=== PATIENT | male | born 1955 | race Caucasian/White ===

== ENCOUNTER 2024-12-12 09:52 | Inpatient (IN) | payer OTHER ==
[~2024-12-12] VITALS: Ht 188 cm; Wt 99.3 kg
--- NOTE | 2024-12-12 10:15 | ED.PDOC ---
SOB-HPI HPI Comments 69 year old male presents to the ED with chief complaint of SOB. Patient reports that he has been experiencing SOB with associated generalized weakness for the past few days. Patient relays that he is currently on Eliquis and chemotherapy with his last session being on Wednesday. Patient noted to have a BP of 73/54 in triage. Patient denies any N/V/D, chest pain, dizziness, headache, fever, or chills. Time Seen by MD: 10:09 Reviewed notes: Nurses Notes, Medications, Allergies Information Source: Patient Mode of Arrival: Wheelchair Severity: Moderate Timing: Days Duration: Since onset Context: At Rest PE Risk Factors: None History of: None Prehospital treatment: None Modifying Factors: Nothing Associated Signs and Symptoms: Other (Weakness) Past Medical History PAST MEDICAL HISTORY: AFIB, Cancer Surgical History (Other): Colostomy Family History Family History: Reviewed,noncontributory to illness Social History Smoker: Non-Smoker Alcohol: Denies ETOH Use Drugs: Denies Drug Use Lives In: Home Constitutional: reports: weakness; denies: chills, diaphoresis, fatigue, fever, malaise, sweats, others EENTM: denies: blurred vision, double vision, ear bleeding, ear discharge, ear drainage, ear pain, ear ringing, eye pain, eye redness, hearing loss, mouth pain, mouth swelling, nasal discharge, nose bleeding, nose congestion, nose pain , photophobia, tearing, throat pain, throat swelling, voice changes, others Respiratory: reports: shortness of breath; denies: cough, hemoptysis, orthopnea, SOB at rest, SOB with excertion, stridor, wheezing, others Cardiovascular: denies: chest pain, dizzy spells, diaphoresis, Dyspnea on exertion, edema, irregular heart beat, left arm pain, lightheadedness, palpitations, PND, syncope, others Gastrointestinal: denies: abdomen distended, abdominal pain, blood streaked bowels, constipated, diarrhea, dysphagia, difficulty swallowing, hematemesis, melena, nausea, poor appetite, poor fluid intake, rectal bleeding, rectal pain, vomiting, others Genitourinary: denies: burning, dysuria, flank pain, frequency, hematuria, incontinence, penile discharge, penile sore, pain, testicle pain, testicle swelling, urgency, others Neurological: denies: dizziness, fainting, headache, left sided numbness, left sided weakness, numbness, paresthesia, pre-existing deficit, right sided numbness, right sided weakness, seizure, speech problems, tingling, tremors, weakness, others Musculoskeletal: denies: back pain, gout, joint pain, joint swelling, muscle pain, muscle stiffness, neck pain, others Integumetry: denies: bruises, change in color, change in hair/nails, dryness, laceration, lesions, lumps, rash, wounds, others Allergic/Immunocompromised: denies: Difficulty Healing, Frequent Infections, Hives, Itching, others Hematologic/Lymphatic: denies: anemia, blood clots, easy bleeding, easy bruising, swollen glands, others Endocrine: denies: excessive hunger, excessive sweating, excessive thirst, excessive urination, flushing, intolerance to cold, intolerance to heat, unexplained weight gain, unexplained weight loss, others Psychiatric: denies: anxiety, bipolar disorder, depression, hopeless, panic disorder, schizophrenia, sleepless, suicidal, others All Other Systems: Reviewed and Negative Physical Exam General Appearance: No Apparent Distress, Normal HEENT: Normal ENT Inspection, PERRL/EOMI Neck: Full Range of Motion, Non-Tender, Normal, Normal Inspection Respiratory: Chest Non-Tender, Lungs Clear, No Accessory Muscle Use, No Respiratory Distress, Other (Coarse breath sounds bilaterally) Cardiovascular: No Edema, No JVD, No Murmur, No Gallop, Normal Peripheral Pulses, Tachycardia Breast Exam: Other (Left sided chest wall port) Gastrointestinal: No Organomegaly, Non Tender, No Pulsatile Mass, Normal Bowel Sounds, Soft Genitalia: Deferred Pelvic: Deferred Rectal: Deferred Extremities: No calf tenderness, Normal capillary refill, Normal inspection, Normal range of motion, Non-tender, No pedal edema Musculoskeletal : Apperance: Normal Neurologic: Alert, redye hand II-XII nml as Tested, No Motor Deficits, Normal Affect, Normal Mood, No Sensory Deficits Cerebellar Function: Normal Reflexes: Normal Skin: Dry, Normal Color, Warm Lymphatic: No Adenopathy Was a procedure done? Was a procedure done?: No Differential Dx Differential Diagnosis: Asthma, Cardiogenic Shock, CHF, COPD, Pneumonia, Respiratory Distress X-Ray, Labs, Meds, VS Vital Signs Date Time Temp Pulse Resp B/P (MAP) Pulse Ox O2 Delivery O2 Flow Rate FiO2 12/12/24 12:33 72 14 151/96 (114) 98 12/12/24 12:32 75 18 98 Room Air* 0 21 12/12/24 12:00 81 12/12/24 11:20 86 12 123/73 (90) 99 12/12/24 11:20 12 99 Room Air* 0 21 12/12/24 10:25 98.7 80 18 73/54 (60) 100 12/12/24 10:06 87 12/12/24 10:00 18 100 Room Air* 0 21 Lab Test 12/12/24 13:22 12/12/24 10:50 12/12/24 10:16 Range/Units Lactic Acid Level 1.3 2.4 *H 0.4-2.0 mmol/L Troponin I High Sensitivity 17 18 18 </=54 ng/L White Blood Count 11.0 H 4.4-10.8 10^3/uL Red Blood Count 5.34 4.5-5.90 10^6/uL Hemoglobin 11.7 L 13.5-17.5 g/dL Hematocrit 40.7 L 41.0-53.0 % Mean Corpuscular Volume 76.2 L 80.0-100.0 fL Mean Corpuscular Hemoglobin 21.8 L 28.0-32.0 pg Mean Corpuscular Hemoglobin Concent 28.6 L 32.0-36.0 g/dL Red Cell Distribution Width 24.8 H 11.8-14.3 % Platelet Count 386 140-450 10^3/uL Mean Platelet Volume 8.2 6.9-10.8 fL Neutrophils (%) (Auto) 72.6 37.0-80.0 % Lymphocytes (%) (Auto) 17.2 10.0-50.0 % Monocytes (%) (Auto) 9.2 0.0-12.0 % Eosinophils (%) (Auto) 0.7 0.0-7.0 % Basophils (%) (Auto) 0.3 0.0-2.0 % Neutrophils # (Auto) 8.0 1.6-8.6 10 ^3/uL Lymphocytes # (Auto) 1.9 0.4-5.4 10 ^3/uL Monocytes # (Auto) 1.0 0-1.3 10 ^3/uL Eosinophils # (Auto) 0.1 0-0.8 10 ^3/uL Basophils # (Auto) 0 0-0.2 10 ^3/uL Nucleated Red Blood Cells 0.3 % Sodium Level 135 L 136-145 mmol/L Potassium Level 3.0 L 3.5-5.1 mmol/L Chloride Level 105 98-107 mmol/L Carbon Dioxide Level 15 L 20-31 mmol/L Anion Gap 15 5-15 Blood Urea Nitrogen 37 H 9-23 mg/dL Creatinine 1.94 H 0.700-1.30 mg/dL Glomerular Filtration Rate Calc 36 >90 mL/min BUN/Creatinine Ratio 19.1 10.0-20.0 Serum Glucose 137 H 74-106 mg/dL Calcium Level 9.5 8.7-10.4 mg/dL Total Bilirubin 0.6 0.2-1.0 mg/dL Aspartate Amino Transferase (AST) 50 H 13-40 U/L Alanine Aminotransferase (ALT) 34 7-40 U/L Alkaline Phosphatase 176 H 46-116 U/L B-Type Natriuretic Peptide 31.85 0-100 pg/mL Total Protein 6.7 5.7-8.2 g/dL Albumin 4.8 3.2-4.8 g/dL Current Medications Medications (Trade) Dose Ordered Sig/Vidhya Route Start Time Stop Time Status Last Admin Sodium Chloride 1,000 ml @ 1,000 mls/hr Q1H ONCE IV 12/12/24 10:15 12/12/24 12:29 DC 12/12/24 10:30 Ondansetron HCl (Zofran) 4 mg ONCE ONCE IV 12/12/24 10:15 12/12/24 12:28 DC 12/12/24 10:30 Time of 1ST Reevaluation: 11:09 Reevaluation 1ST: Unchanged Patient Education/Counseling: Diagnosis, Treatment Family Education/Counseling: No Family Present Additional Information I reviewed the following notes from patient's past medical encounters: None The following tests were ordered, and results were reviewed by me: Chest XR, EKG, CBC, CMP, UA, BNP, Lactic Acid, Troponin I reviewed and agreed with the following test results read by other providers: Chest XR Additional Information was gathered from interviewing the following independent historians: None I discussed treatment and results with medical personnel. Departure 1 Departure Time of Disposition: 14:28 (Patient with worsening respiratory distress likely secondary to malignancy. We will admit patient to the hospital for further workup.) Impression: Primary Impression: Acute respiratory distress Additional Impressions: Shortness of breath Malignancy Disposition: ADMITTED INPATIENT Admit to: Med Surg Condition: Serious Critical Care Note Critical Care Time?: Yes Critical care comment: Acute respiratory distress Authorized and Performed by: Sawyer Gomez MD Total critical care time: Approximately 38 minutes Due to a high probability of clinically significant, life threatening deterioration, the patient required my highest level of preparedness to intervene emergently and I personally spent this critical care time directly and personally managing the patient. This critical care time included obtaining a history; examining the patient; pulse oximetry; ordering and review of studies; arranging urgent treatment with development of a management plan; evaluation of patient's response to treatment; frequent reassessment; and, discussions with other providers. This critical care time was performed to assess and manage the high probability of imminent, life-threatening deterioration that could result in multi-organ failure. It was exclusive of separately billable procedures and treating other patients and teaching time. Please see my other sections and the rest of the note for further information on patient assessment and treatment. Stability Stability form required: No Heart Score Heart Score: Heart Score Response (Comments) Value History N/A 0 EKG N/A 0 Age N/A 0 Risk Factors N/A 0 Troponin N/A 0 Total 0 I personally scribed for SAWYER GOMEZ MD ([email or web address]) on 12/12/24 at 10:15. Electronically submitted by Gabriel Ocasio ([email or web address]). I personally scribed for SAWYER GOMEZ MD ([email or web address]) on 12/12/24 at 10:20. Electronically submitted by Gabriel Ocasio ([email or web address]). SAWYER GOMEZ MD Dec 12, 2024 10:15
[2024-12-12] MEDS: ONDANSETRON HCL 4 MG/2 ML VIAL IV ONE (10:30)
[2024-12-12] MEDS: SODIUM CHLORIDE 0.9% 1,000 ML IV ONE (10:30)
[2024-12-12 10:44] LABS: Hemoglobin 11.7 g/dL (13.5-17.5); Mean Corpuscular Hgb Conc. 28.6 g/dL (32.0-36.0); Nucleated Red Blood Cells % 0.3 %
[2024-12-12 10:46] LABS: Basophils # (auto) 0 10 ^3/uL (0-0.2); Basophils % (auto) 0.3 % (0.0-2.0); Eosinophils # (auto) 0.1 10 ^3/uL (0-0.8); Eosinophils % (auto) 0.7 % (0.0-7.0); Hematocrit 40.7 % (41.0-53.0); Lymphocytes # (auto) 1.9 10 ^3/uL (0.4-5.4); Lymphocytes % (auto) 17.2 % (10.0-50.0); Mean Corpuscular Hemoglobin 21.8 pg (28.0-32.0); Mean Corpuscular Volume 76.2 fL (80.0-100.0); Monocytes % (auto) 9.2 % (0.0-12.0); Neutrophils % (auto) 72.6 % (37.0-80.0); Platelet Count (auto) 386 10^3/uL (140-450); Red Blood Cells 5.34 10^6/uL (4.5-5.90); Red Cell Distribution Width 24.8 % (11.8-14.3)
--- NOTE | 2024-12-12 10:59 | DVH ---
EXAM: XY CHEST PORTABLE Indication: weakness Technique: Single frontal view of the chest was obtained Comparison: None FINDINGS: Lines and Tubes: None Lungs: No focal consolidation. Prominence of the right hilar region. Pleura: No effusion. No pneumothorax. Cardiomediastinal contours: Unremarkable Bones: No acute osseous abnormality. IMPRESSION: Prominence of the right hilar region which may represent a enlarged lymph node or pulmonary vascular congestion.
[2024-12-12 11:20] VITALS: RESP 12; O2SAT 99
[2024-12-12 11:45] LABS: Alanine Aminotransferase 34 U/L (7-40); Calcium 9.5 mg/dL (8.7-10.4); Chloride 105 mmol/L (98-107)
[2024-12-12 11:46] LABS: Albumin 4.8 g/dL (3.2-4.8); Anion Gap 15 (5-15); BUN/Creatinine Ratio 19.1 (10.0-20.0); Bilirubin, Total 0.6 mg/dL (0.2-1.0); Total Protein 6.7 g/dL (5.7-8.2)
[2024-12-12 11:48] LABS: Aspartate Aminotransferase 50 U/L (13-40); Blood Urea Nitrogen 37 mg/dL (9-23); Carbon Dioxide 15 mmol/L (20-31); Glucose 137 mg/dL (74-106); Sodium 135 mmol/L (136-145)
[2024-12-12 12:00] LABS: Lactic Acid w/Reflex 2.4 mmol/L (0.4-2.0)
[2024-12-12 12:32] VITALS: PULSE 75; RESP 18; O2SAT 98
[2024-12-12 12:37] LABS: Alkaline Phosphatase 176 U/L (46-116)
--- NOTE | 2024-12-12 15:21 | ECG ---
[facility] Test Date: 2024-12-12 Test Time: 10:06:10 Pat Name: CHARLES DUMONT Department: ER Room: 0289T Gender: M Cabin Supervisor: GP : [id number] Requested By: SAWYER CAMILO Order Number: [id number] Reading MD: Otis Kinney Measurements Intervals [place] Rate: 87 P: 0 UT: 0 QRS: 62 QRSD: 100 T: 23 QT: 431 QTc: 519 Interpretive Statements Atrial fibrillation Inferior infarct, old Prolonged QT interval Baseline wander in lead(s) I,II,aVR,aVL,aVF,V2,V3,V4,V5,V6 Electronically Signed On 12-14-2024 11:53:58 PST by Otsi Kinney Please click the below link to view image of tracing.
[2024-12-12] MEDS ORDERED: CELE1CAP29 PO (15:52)
[2024-12-12] MEDS ORDERED: FERR325T20 PO (15:52)
[2024-12-12] MEDS ORDERED: TAMS0.4C39 (15:52)
[2024-12-12] MEDS ORDERED: OXY5T (15:52)
[2024-12-12] MEDS ORDERED: APIX5TAB (15:52)
[2024-12-12] MEDS ORDERED: MORPHINE SULFATE INJ 2 MG/ml SYRG IV PRN (16:00)
[2024-12-12] MEDS ORDERED: CHOLESTYRAMINE 4 GM POWDER PO ONE (16:00)
[2024-12-12] MEDS ORDERED: NITROGLYCERIN 0.4 MG SL TAB SL PRN (16:00)
[2024-12-12] MEDS ORDERED: oxyCODONE HCL 5MG TAB PO PRN ×2 (16:00→16:15)
--- NOTE | 2024-12-12 16:00 | DVHHP2 ---
History of Present Illness Reason for Visit: Generalized weakness History of Present Illness The patient was a 69-year-old male presenting to the emergency room with generalized weakness that has been progressing over the past 3-4 days. Patient also reports having loose stools coming from his colostomy. Patient was significant history of metastatic colon cancer with colectomy, colostomy creation, as well as having chemotherapy that started approximately a week and a half ago. Patient was states that he ambulates and has a dizziness. He denies having any fevers, chills, body aches, but does report having poor appetite. Upon arrival to the emergency room with the patient was blood pressure was noted to be 73/54. Cardiovascular: AFIB Heme/Onc: Cancer (Metastatic colon cancer) Past Surgical History: Other (Colostomy) Family History: None Smoke: Quit ALCOHOL: none Drugs: None Lives: with Family Review of Systems Constitutional: Yes: Weakness; No: Fever, Chills, Sweats, Malaise, Other Eyes: No: Pain, Vision change, Conjunctivae inflammation, Eyelid inflammation, Other, Redness ENT: No: Ear pain, Ear discharge, Nose pain, Nose discharge, Nose congestion, Mouth pain, Mouth swelling, Throat pain, Throat swelling, Other Respiratory: No: Cough, Dry, Shortness of breath, SOB with excertion, Wheezing, Hemoptysis, Pleuritic Pain, Sputum, Wheezing, Other Cardiovascular: No: Chest Pain, Palpitations, Orthopnea, Paroxysmal Noc. Dyspnea, Edema, Lt Headedness, Other Gastrointestinal: Other (Oral intake) Genitourinary: No Dysuria, No Frequency, No Incontinence, No Hematuria, No Retention, No Other Musculoskeletal: No: other, neck pain, shoulder pain, arm pain, back pain, hand pain, leg pain, foot pain Skin: No: Rash, Lesions, Jaundice, Bruising, Other Neurological: No: Weakness, Numbness, Incoordination, Change in speech, Confusion, Seizures, Other Allergies: Coded Allergies: NO KNOWN ALLERGIES (Unverified , 12/12/24) Medications Current Medications Medications Dose Ordered Sig/Vidhya Route Start Time Stop Time Status Last Admin Dose Admin Nitroglycerin 0.4 mg Q5MINP PRN SL 12/12/24 16:00 UNV Morphine Sulfate 2 mg Q30M PRN IV 12/12/24 16:00 UNV Apixaban 5 mg BID PO 12/12/24 22:00 UNV Oxycodone HCl 5 mg Q8HR PRN PO 12/12/24 16:00 UNV Tamsulosin HCl 0.4 mg HS PO 12/12/24 22:00 UNV Patient Own Medication 1 cap DAILY PO 12/13/24 10:00 UNV Patient Own Medication 1 tab DAILY PO 12/13/24 10:00 UNV Exam Vital Signs Vital Signs Date Time Temp Pulse Resp B/P (MAP) Pulse Ox O2 Delivery O2 Flow Rate FiO2 12/12/24 15:51 81 20 131/77 (95) 96 12/12/24 12:32 Room Air* 0 21 12/12/24 10:25 98.7 General Appearance: Alert, Oriented X3, Cooperative, mild distress HEENT: Atraumatic, PERRLA Respiratory: Clear to auscultation, Normal air movement Cardiovascular: Normal S1, Normal S2, Other (Atrial fibrillation) Abdominal: Normal bowel sounds, Other (Colostomy with loose green stool) Extremities: No clubbing, No cyanosis, No edema, Normal pulses, No tender ness/swelling Neuro: Normal gait, Normal speech Psych/Mental Status: Mental status NL, Mood NL Labs/Xrays Labs Test 12/12/24 13:22 12/12/24 10:16 Range/Units Lactic Acid Level 1.3 0.4-2.0 mmol/L Troponin I High Sensitivity 17 </=54 ng/L White Blood Count 11.0 H 4.4-10.8 10^3/uL Red Blood Count 5.34 4.5-5.90 10^6/uL Hemoglobin 11.7 L 13.5-17.5 g/dL Hematocrit 40.7 L 41.0-53.0 % Mean Corpuscular Volume 76.2 L 80.0-100.0 fL Mean Corpuscular Hemoglobin 21.8 L 28.0-32.0 pg Mean Corpuscular Hemoglobin Concent 28.6 L 32.0-36.0 g/dL Red Cell Distribution Width 24.8 H 11.8-14.3 % Platelet Count 386 140-450 10^3/uL Mean Platelet Volume 8.2 6.9-10.8 fL Neutrophils (%) (Auto) 72.6 37.0-80.0 % Lymphocytes (%) (Auto) 17.2 10.0-50.0 % Monocytes (%) (Auto) 9.2 0.0-12.0 % Eosinophils (%) (Auto) 0.7 0.0-7.0 % Basophils (%) (Auto) 0.3 0.0-2.0 % Neutrophils # (Auto) 8.0 1.6-8.6 10 ^3/uL Lymphocytes # (Auto) 1.9 0.4-5.4 10 ^3/uL Monocytes # (Auto) 1.0 0-1.3 10 ^3/uL Eosinophils # (Auto) 0.1 0-0.8 10 ^3/uL Basophils # (Auto) 0 0-0.2 10 ^3/uL Nucleated Red Blood Cells 0.3 % Sodium Level 135 L 136-145 mmol/L Potassium Level 3.0 L 3.5-5.1 mmol/L Chloride Level 105 98-107 mmol/L Carbon Dioxide Level 15 L 20-31 mmol/L Anion Gap 15 5-15 Blood Urea Nitrogen 37 H 9-23 mg/dL Creatinine 1.94 H 0.700-1.30 mg/dL Glomerular Filtration Rate Calc 36 >90 mL/min BUN/Creatinine Ratio 19.1 10.0-20.0 Serum Glucose 137 H 74-106 mg/dL Calcium Level 9.5 8.7-10.4 mg/dL Total Bilirubin 0.6 0.2-1.0 mg/dL Aspartate Amino Transferase (AST) 50 H 13-40 U/L Alanine Aminotransferase (ALT) 34 7-40 U/L Alkaline Phosphatase 176 H 46-116 U/L B-Type Natriuretic Peptide 31.85 0-100 pg/mL Total Protein 6.7 5.7-8.2 g/dL Albumin 4.8 3.2-4.8 g/dL Assessment/Plan Assessment/Plan Impression: -probable hypovolemic hypotension -metastatic colon cancer -atrial fibrillation -leukocytosis, rule out sepsis Plan: -admit to telemetry unit -IV hydration -empiric antibiotic therapy with Rocephin and Flagyl -stool culture, blood culture -trial of Questran for stool bulking -continue Eliquis -PPI -repeat labs in a.m. Plan of care discussed with patient and . All questions answered. Total time spent with patient discussing and formulating plan of care: 35 minutes. This medical document was created using an electronic medical record system with [employer] dictation system. Although this document has been carefully reviewed, there may still be some phonetic and typographical errors. These areas are purely typographical due to imperfections of the software programs, and do not reflect any compromise in the patient's medical care. Plan discussed with: Patient, Spouse, Other (RN) My Orders Orders - OLIVER GREGORY NP Procedure Category Date Status Time Admit ADMIT 12/12/24 Transmitted 15:50 Nitroglycerin PHA 12/12/24 Logged Sublingual (Ntrostat 16:00 Morphine Sulfate PHA 12/12/24 Logged Injection 16:00 Stat Ekg For Chest ADINA 12/12/24 In Process Pain 15:50 Notify Md Of Changes [facility]INA 12/12/24 In Process From Base 15:50 Intelligence Senior Sergeant For ADINA 12/12/24 In Process 24 Hours 15:50 Emergency Dysrhythmia ADINA 12/12/24 In Process Protocol 15:50 Rhythm Strips Once ADINA 12/12/24 In Process Every Shift 15:50 Oxygen By Nasal RT 12/12/24 Transmitted Cannula 15:50 Apixaban (Eliquis) PHA 12/12/24 Logged 22:00 Oxycodone Immediate PHA 12/12/24 Logged Rel Tablet 16:00 Tamsulosin PHA 12/12/24 Logged Hydrochloride (Flomax) 22:00 (Nf) Celecoxib PHA 12/13/24 Logged 10:00 (Nf) Ferrous Sulfate PHA 12/13/24 Logged (Ferosul) 10:00 Stool Bacterial CRISTIAN 12/12/24 Verified Culture 15:53 Blood Culture CRISTIAN 12/12/24 Verified 15:53 Cholestyramine Powder PHA 12/12/24 Verified (Questran Powder) 16:00 Metronidazole Ivpb PHA 12/12/24 Verified Flagyl 22:00 Ceftriaxone Ivpb PHA 12/13/24 Verified Rocephin 09:00 NS PHA 12/12/24 Verified 16:00 Complete Blood Count LAB 12/13/24 Verified 04:00 C-Reactive Protein LAB 12/13/24 Verified 04:00 Comprehensive LAB 12/13/24 Verified Metabolic Panel 04:00 Date of Service: Dec 12, 2024 Billing Provider: OLIVER GREGORY NP Common Visit Codes: [id number] CARE 30-74 MIN OLIVER GREGORY NP Dec 12, 2024 16:00
[2024-12-12] MEDS: SODIUM CHLORIDE 0.9% 1,000 ML IV SCH (16:22)
[2024-12-12 16:32] LABS: Urine Bacteria None Seen /hpf (None Seen)
[2024-12-12 16:45] LABS: Urine Blood 3+ /uL (Negative); Urine Budding Yeast OCCASIONAL /hpf (None Seen); Urine Clarity Turbid (Clear); Urine Color Yellow (Yellow); Urine Hyaline Cast MOD /lpf (0 - 2); Urine Mucus FEW (None Seen); Urine Protein, UAD 1+ (Negative); Urine Specific Gravity 1.022 (1.001-1.035); Urine Squamous Epithelial Cell None Seen /hpf (<5); Urine Urobilinogen Normal (Negative); Urine WBC 1 /HPF (0-3)
[2024-12-12] MEDS: CHOLESTYRAMINE 4 GM POWDER PO ONE (18:03)
[2024-12-12 19:50] VITALS: PULSE 82; RESP 9; O2SAT 98
[2024-12-12] MEDS: APIXABAN 5 MG TAB PO SCH (22:00)
[2024-12-12] MEDS: TAMSULOSIN HYDROCHLORIDE 0.4 MG CAP PO SCH (22:00)
[2024-12-12] MEDS: metroNIDAZOLE 500MG/100ML 100 ML IV SCH (22:10)
[2024-12-12 23:00] VITALS: BP_SYST 101; BP_SYST 137; BP_DIAS 65; BP_DIAS 72; PULSE 63; PULSE 64; RESP 19; RESP 20; TEMP 97.6; TEMP 98.6; O2SAT 98; O2SAT 99
[2024-12-13] VITALS (8 sets, daily range): BP systolic 113–140; BP diastolic 74–84; PULSE 55–97; RESP 18–20; TEMP 97.3–98.6; O2SAT 94–99
[2024-12-13] MEDS: metroNIDAZOLE 500MG/100ML 100 ML IV SCH (05:29)
[2024-12-13] MEDS ORDERED: CELECOXIB PO SCH (10:00)
[2024-12-13] MEDS: CELECOXIB 100 MG CAP PO SCH (10:00)
[2024-12-13] MEDS: FERROUS SULFATE 325mg EC TAB PO SCH (10:57)
[2024-12-13] MEDS: cefTRIAXone 1GM/50ML D5W 50 ML IV SCH (10:58)
[2024-12-13 10:59] LABS: Basophils # (auto) 0 10 ^3/uL (0-0.2); Basophils % (auto) 0.3 % (0.0-2.0); Eosinophils # (auto) 0.1 10 ^3/uL (0-0.8); Eosinophils % (auto) 0.8 % (0.0-7.0); Hematocrit 38.5 % (41.0-53.0); Hemoglobin 11.5 g/dL (13.5-17.5); Lymphocytes # (auto) 0.8 10 ^3/uL (0.4-5.4); Lymphocytes % (auto) 8.5 % (10.0-50.0); Mean Corpuscular Hemoglobin 22.6 pg (28.0-32.0); Mean Corpuscular Hgb Conc. 29.8 g/dL (32.0-36.0); Mean Corpuscular Volume 75.9 fL (80.0-100.0); Monocytes # (auto) 0.8 10 ^3/uL (0-1.3); Monocytes % (auto) 8.5 % (0.0-12.0); Neutrophils # (auto) 7.7 10 ^3/uL (1.6-8.6); Neutrophils % (auto) 81.9 % (37.0-80.0); Nucleated Red Blood Cells % 0.3 %; Platelet Count (auto) 360 10^3/uL (140-450); Red Blood Cells 5.07 10^6/uL (4.5-5.90); Red Cell Distribution Width 24.3 % (11.8-14.3); White Blood Cell 9.4 10^3/uL (4.4-10.8)
[2024-12-13 12:08] LABS: Alanine Aminotransferase 31 U/L (7-40); Albumin 4.6 g/dL (3.2-4.8); Anion Gap 11 (5-15); BUN/Creatinine Ratio 16.5 (10.0-20.0); Bilirubin, Total 0.6 mg/dL (0.2-1.0); Calcium 9.9 mg/dL (8.7-10.4); Sodium 137 mmol/L (136-145); Total Protein 6.9 g/dL (5.7-8.2)
[2024-12-13 12:20] LABS: Aspartate Aminotransferase 47 U/L (13-40); Blood Urea Nitrogen 29 mg/dL (9-23); Carbon Dioxide 19 mmol/L (20-31); Chloride 107 mmol/L (98-107); Glucose 113 mg/dL (74-106); Potassium 3.1 mmol/L (3.5-5.1)
[2024-12-13 13:06] LABS: Alkaline Phosphatase 166 U/L (46-116)
--- NOTE | 2024-12-13 13:09 | DVHINCON2 ---
GI Consult Consult Note GI consult note Date of Consultation: 12/13/2024 Chief Complaint: Diarrhea Referring Physician: Dr. Velasquez H&P: 69-year-old male presented to ER with shortness of breath and generalized weakness for the past few days Patient has history of colon cancer, SP abdominal surgery with colostomy three months ago Patient is started on new chemo on 12/02/2024, where patient has stopped taking the pills three days ago No abdominal pain. No nausea or vomiting. Patient has loose stools, having to change colostomy bag every 3 hours No melena or red blood in stool. Patient goes to [place] for oncology treatment Past Medical History: AFIB, Cancer Past Surgical History: Colostomy Social History: NO smoking, drinking ETOH and use of illegal drugs. Family History: Noncontributory Review of Systems: Constitutional: no fever, chill, weight loss HEENT: no eye pain, no hearing loss, no oral lesion, no scleral icterus Heart: no chest pain, no chest pressure Lung: Shortness of breath Abdomen: see HPI Physical exam: General: NAD, AAOX3 Chest: lung caldera clear to auscultation Heart: RRR, no murmur Abdomen: non-distended, no tenderness to palpation, +BS Labs: Labs Test 12/13/24 10:07 12/12/24 15:38 12/12/24 13:22 12/12/24 10:16 Range/Units White Blood Count 9.4 4.4-10.8 10^3/uL Red Blood Count 5.07 4.5-5.90 10^6/uL Hemoglobin 11.5 L 13.5-17.5 g/dL Hematocrit 38.5 L 41.0-53.0 % Mean Corpuscular Volume 75.9 L 80.0-100.0 fL Mean Corpuscular Hemoglobin 22.6 L 28.0-32.0 pg Mean Corpuscular Hemoglobin Concent 29.8 L 32.0-36.0 g/dL Red Cell Distribution Width 24.3 H 11.8-14.3 % Platelet Count 360 140-450 10^3/uL Mean Platelet Volume 7.9 6.9-10.8 fL Neutrophils (%) (Auto) 81.9 H 37.0-80.0 % Lymphocytes (%) (Auto) 8.5 L 10.0-50.0 % Monocytes (%) (Auto) 8.5 0.0-12.0 % Eosinophils (%) (Auto) 0.8 0.0-7.0 % Basophils (%) (Auto) 0.3 0.0-2.0 % Neutrophils # (Auto) 7.7 1.6-8.6 10 ^3/uL Lymphocytes # (Auto) 0.8 0.4-5.4 10 ^3/uL Monocytes # (Auto) 0.8 0-1.3 10 ^3/uL Eosinophils # (Auto) 0.1 0-0.8 10 ^3/uL Basophils # (Auto) 0 0-0.2 10 ^3/uL Nucleated Red Blood Cells 0.3 % Sodium Level 137 136-145 mmol/L Potassium Level 3.1 L 3.5-5.1 mmol/L Chloride Level 107 98-107 mmol/L Carbon Dioxide Level 19 L 20-31 mmol/L Anion Gap 11 5-15 Blood Urea Nitrogen 29 H 9-23 mg/dL Creatinine 1.76 H 0.700-1.30 mg/dL Glomerular Filtration Rate Calc 41 >90 mL/min BUN/Creatinine Ratio 16.5 10.0-20.0 Serum Glucose 113 H 74-106 mg/dL Calcium Level 9.9 8.7-10.4 mg/dL Total Bilirubin 0.6 0.2-1.0 mg/dL Aspartate Amino Transferase (AST) 47 H 13-40 U/L Alanine Aminotransferase (ALT) 31 7-40 U/L Alkaline Phosphatase 166 H 46-116 U/L Total Protein 6.9 5.7-8.2 g/dL Albumin 4.6 3.2-4.8 g/dL Urine Color Yellow Yellow Urine Clarity Turbid H Clear Urine pH 6.0 5.0-9.0 Urine Specific [place] 1.022 1.001-1.035 Urine Protein 1+ H Negative Urine Ketones Negative Negative Urine Blood 3+ H Negative /uL Urine Nitrite Negative Negative Urine Bilirubin Negative Negative Urine Urobilinogen Normal Negative mg/dL Urine Leukocyte Esterase Negative Negative /uL Urine RBC 216 0 - 3 /hpf Urine Microscopic WBC 1 0-3 /HPF Urine Squamous Epithelial Cells None seen <5 /hpf Urine Bacteria None seen None Seen /hpf Urine Hyaline Casts Mod 0 - 2 /lpf Urine Mucus Few None Seen Urine Yeast (Budding) Occasional None Seen /hpf Urine Glucose Normal Normal mg/dL Lactic Acid Level 1.3 0.4-2.0 mmol/L Troponin I High Sensitivity 17 </=54 ng/L B-Type Natriuretic Peptide 31.85 0-100 pg/mL Imaging: Assessment: Diarrhea possible secondary to medication changes Metastatic colon cancer Plan: Discussed with Dr. Melton Stool for C diff, bacterial culture, and WBC Monitor lab Continue antibiotics We will continue to monitor the patient Thank you for the consult Date of Service: Dec 13, 2024 Billing Provider: NBA FAN Common Visit Codes: CONSULT ONLY Consultation Codes: [id number] CONSULT <60MIN NBA FAN Dec 13, 2024 13:09
[2024-12-13 13:41] LABS: CRP High Sensitivity 0.33 mg/dL (<1.0)
[2024-12-13] MEDS: PANTOPRAZOLE 40 MG TAB PO ONE (13:55)
[2024-12-13] MEDS: POTASSIUM CHL 20 Meq TABLET PO ONE ×2 (13:59→14:12)
--- NOTE | 2024-12-13 14:29 | DVHPN2 ---
Subjective 69-year-old male with a history of recent diagnoses of colon cancer status post colectomy and colostomy placement about 3 month ago, also history of multiple myeloma 6 years ago, old CVA, atrial fibrillation on Eliquis comes here with a chief complaint of weakness and dehydration and severe high output of his colostomy bag for the last 5 days he has been having severe watery output to the point he had getting dehydrated No nausea or vomiting or abdominal pain He has started chemo therapy recently and his symptoms started after that Changes from previous H/P or p: Changes Eyes: No Pain, No Vision change, No Conjunctivae inflammation, No Eyelid inflammation, No Other, No Redness ENT: No Ear pain, No Ear discharge, No Nose pain, No Nose discharge, No Nose congestion, No Mouth pain, No Mouth swelling, No Throat pain, No Throat swelling, No Other Cardiovascular: No Chest Pain, No Palpitations, No Orthopnea, No Paroxysmal Noc. Dyspnea, No Edema, No Lt Headedness, No Other Respiratory: No Cough, No Dry, No Shortness of breath, No SOB with excertion, No Wheezing, No Hemoptysis, No Pleuritic Pain, No Sputum, No Other Gastrointestinal: Other (Oral intake) Genitourinary: No Dysuria, No Frequency, No Incontinence, No Hematuria, No Retention, No Other Musculoskeletal: No other, No neck pain, No shoulder pain, No arm pain, No back pain, No hand pain, No leg pain, No foot pain Skin: No Rash, No Lesions, No Jaundice, No Bruising, No Other Objective Vitals Vital Signs Date Time Temp Pulse Resp B/P (MAP) Pulse Ox O2 Delivery O2 Flow Rate FiO2 12/13/24 12:57 97.3 80 18 123/83 (96) 96 97.3 12/12/24 23:03 Room Air* 0 21 Intake/Output Intake and Output 12/13/24 07:00 Intake Total 400 ml Output Total 1550 ml Balance -1150 ml Intake Oral 300 ml IV Total 100 ml Output Urine Total 150 ml Stool Total 600 ml Drainage Total 800 ml General Appearance: Alert, Oriented X3 Lungs: Clear to auscultation, Normal air movement Cardiovascular: Regular rate, Normal S1, Normal S2 Extremities: No edema Medications Current Medications Medications Dose Ordered Sig/Vidhya Route Start Time Stop Time Status Last Admin Dose Admin Nitroglycerin 0.4 mg Q5MINP PRN SL 2/11/25 16:00 Morphine Sulfate 2 mg Q30M PRN IV 12/12/24 16:00 Apixaban 5 mg BID PO 12/12/24 22:00 12/13/24 10:57 5 MG Tamsulosin HCl 0.4 mg HS PO 12/12/24 22:00 Ferrous Sulfate 325 mg DAILY PO 12/13/24 10:00 12/13/24 10:57 325 MG Sodium Chloride 1,000 ml @ 100 mls/hr Q10H IV 12/12/24 16:00 12/13/24 13:59 100 MLS/HR Oxycodone HCl 5 mg Q8HR PRN PO 12/12/24 16:15 Celecoxib 200 mg DAILY PO 12/13/24 10:00 12/13/24 10:00 200 MG Metronidazole 100 ml @ 100 mls/hr Q8HR IV 12/13/24 06:00 12/13/24 14:20 100 MLS/HR Pantoprazole Sodium 40 mg DAILY@0600 PO 12/14/24 06:00 Laboratory Results Laboratory Tests 12/13/24 10:07 Chemistry Test 12/13/24 10:07 Albumin 4.6 g/dL (3.2-4.8) Calcium Level 9.9 mg/dL (8.7-10.4) Magnesium Level 2.1 mg/dL (1.6-2.6) Total Protein 6.9 g/dL (5.7-8.2) LFT Test 12/13/24 10:07 Alanine Aminotransferase (ALT) 31 U/L (7-40) Alkaline Phosphatase 166 U/L (46-116) H Aspartate Amino Transferase (AST) 47 U/L (13-40) H Total Bilirubin 0.6 mg/dL (0.2-1.0) Urinalysis Test 12/12/24 15:38 Urine Color Yellow (Yellow) Urine Clarity Turbid (Clear) H Urine pH 6.0 (5.0-9.0) Urine Specific [place] 1.022 (1.001-1.035) Urine Protein 1+ (Negative) H Urine Ketones Negative (Negative) Urine Blood 3+ /uL (Negative) H Urine Nitrite Negative (Negative) Urine Bilirubin Negative (Negative) Urine Urobilinogen Normal mg/dL (Negative) Urine Leukocyte Esterase Negative /uL (Negative) Urine RBC 216 /hpf (0 - 3) Urine Microscopic WBC 1 /HPF (0-3) Urine Squamous Epithelial Cells None seen /hpf (<5) Urine Bacteria None seen /hpf (None Seen) Urine Hyaline Casts Mod /lpf (0 - 2) Urine Mucus Few (None Seen) Urine Yeast (Budding) Occasional /hpf (None Urine Glucose Normal mg/dL (Normal) Assessment/Plan Assessment/Plan Hypovolemic hypotension due to dehydration Dehydration Diarrhea Metastatic colon cancer to the liver Atrial fibrillation on Eliquis Leukocytosis rule out sepsis History of multiple myeloma in remission Rule out C diff colitis Chronic anemia Hypokalemia Acute kidney injury hemodynamically mediated Plan Continue IV fluids Get a stool sample for C diff and stool culture GI consult IV Flagyl Discontinue Rocephin Eliquis 5 mg twice a day Ferrous sulfate 325 mg daily Protonix 40 mg daily Replace potassium Discussed with the daughter at the bedside Full code Plan discussed with: Patient My Orders Orders - RICARDO ASCENCIO MD Procedure Category Date Status Time Pantoprazole Tablet PHA 12/14/24 In Process (Protonix Tablet) 06:00 * [facility] Note Specialist CONS 12/13/24 Transmitted 11:23 Clostridium Difficile CRISTIAN 12/13/24 In Process Toxin 12:20 Date of Service: Dec 13, 2024 Billing Provider: RICARDO ASCENCIO MD Common Visit Codes: NOT BILLABLE RICARDO ASCENCIO MD Dec 13, 2024 14:29
[2024-12-14] VITALS (9 sets, daily range): BP systolic 103–128; BP diastolic 60–81; PULSE 72–89; RESP 15–19; TEMP 97.3–97.9; O2SAT 95–100
[2024-12-14] MEDS: PANTOPRAZOLE 40 MG TAB PO SCH (06:32)
--- NOTE | 2024-12-14 11:05 | DVHPN2 ---
Subjective He thinks the output from the colostomy is somewhat less than before Stool culture was negative however the C diff is still pending Labs were not done today Changes from previous H/P or p: Changes Eyes: No Pain, No Vision change, No Conjunctivae inflammation, No Eyelid inflammation, No Other, No Redness ENT: No Ear pain, No Ear discharge, No Nose pain, No Nose discharge, No Nose congestion, No Mouth pain, No Mouth swelling, No Throat pain, No Throat swelling, No Other Cardiovascular: No Chest Pain, No Palpitations, No Orthopnea, No Paroxysmal Noc. Dyspnea, No Edema, No Lt Headedness, No Other Respiratory: No Cough, No Dry, No Shortness of breath, No SOB with excertion, No Wheezing, No Hemoptysis, No Pleuritic Pain, No Sputum, No Other Gastrointestinal: Other (Oral intake) Genitourinary: No Dysuria, No Frequency, No Incontinence, No Hematuria, No Retention, No Other Musculoskeletal: No other, No neck pain, No shoulder pain, No arm pain, No back pain, No hand pain, No leg pain, No foot pain Skin: No Rash, No Lesions, No Jaundice, No Bruising, No Other Objective Vitals Vital Signs Date Time Temp Pulse Resp B/P (MAP) Pulse Ox O2 Delivery O2 Flow Rate FiO2 12/14/24 08:30 97.4 85 16 103/67 (79) 96 97.4 12/14/24 08:20 Room Air* 0 21 Intake/Output Intake and Output 12/14/24 07:00 Intake Total 2380 ml Output Total 740 ml Balance 1640 ml Intake Oral 980 ml IV Total 1400 ml Output Urine Total 740 ml General Appearance: Alert, Oriented X3 Lungs: Clear to auscultation, Normal air movement Cardiovascular: Regular rate, Normal S1, Normal S2 Extremities: No edema Medications Current Medications Medications Dose Ordered Sig/Vidhya Route Start Time Stop Time Status Last Admin Dose Admin Nitroglycerin 0.4 mg Q5MINP PRN SL 12/12/24 16:00 Morphine Sulfate 2 mg Q30M PRN IV 12/12/24 16:00 Apixaban 5 mg BID PO 12/12/24 22:00 12/14/24 10:05 5 MG Tamsulosin HCl 0.4 mg HS PO 12/12/24 22:00 12/13/24 21:17 0.4 MG Ferrous Sulfate 325 mg DAILY PO 12/13/24 10:00 12/14/24 10:04 325 MG Sodium Chloride 1,000 ml @ 100 mls/hr Q10H IV 12/12/24 16:00 12/14/24 08:01 100 MLS/HR Oxycodone HCl 5 mg Q8HR PRN PO 12/12/24 16:15 Celecoxib 200 mg DAILY PO 12/13/24 10:00 12/14/24 10:05 200 MG Metronidazole 100 ml @ 100 mls/hr Q8HR IV 12/13/24 06:00 12/14/24 06:32 100 MLS/HR Pantoprazole Sodium 40 mg DAILY@0600 PO 12/14/24 06:00 12/14/24 06:32 40 MG Laboratory Results Laboratory Tests 12/13/24 10:07 Chemistry Test 12/14/24 10:24 Calcium Level Pending Urinalysis Test 12/12/24 15:38 Urine Color Yellow (Yellow) Urine Clarity Turbid (Clear) H Urine pH 6.0 (5.0-9.0) Urine Specific [place] 1.022 (1.001-1.035) Urine Protein 1+ (Negative) H Urine Ketones Negative (Negative) Urine Blood 3+ /uL (Negative) H Urine Nitrite Negative (Negative) Urine Bilirubin Negative (Negative) Urine Urobilinogen Normal mg/dL (Negative) Urine Leukocyte Esterase Negative /uL (Negative) Urine RBC 216 /hpf (0 - 3) Urine Microscopic WBC 1 /HPF (0-3) Urine Squamous Epithelial Cells None seen /hpf (<5) Urine Bacteria None seen /hpf (None Seen) Urine Hyaline Casts Mod /lpf (0 - 2) Urine Mucus Few (None Seen) Urine Yeast (Budding) Occasional /hpf (None Urine Glucose Normal mg/dL (Normal) Microbiology Microbiology Date/Time Source Procedure Growth Status 12/13/24 08:44 Stool Stool Culture - Preliminary Resulted 12/13/24 08:44 Stool Shiga Toxin I & II - Final Resulted 12/12/24 16:40 Blood Blood Culture - Preliminary NO GROWTH AFTER 24 HOURS OF INCUBATION. Resulted Assessment/Plan Assessment/Plan Hypovolemic hypotension due to dehydration Dehydration Diarrhea Metastatic colon cancer to the liver Atrial fibrillation on Eliquis Leukocytosis rule out sepsis History of multiple myeloma in remission Rule out C diff colitis Chronic anemia Hypokalemia Acute kidney injury hemodynamically mediated Plan Continue IV fluids Get a stool sample for C diff and stool culture GI consult IV Flagyl Discontinue Rocephin Eliquis 5 mg twice a day Ferrous sulfate 325 mg daily Protonix 40 mg daily Replace potassium Discussed with the daughter at the bedside Full code 12/14/2024: Replace potassium magnesium as needed Continue IV Flagyl GI consult is on board Monitor closely Plan discussed with: Patient My Orders Orders - RICARDO ASCENCIO MD Procedure Category Date Status Time Pantoprazole Tablet PHA 12/14/24 In Process (Protonix Tablet) 06:00 * [facility] Grating Machine Operator CONS 12/13/24 Transmitted 11:23 Clostridium Difficile CRISTIAN 12/13/24 In Process Toxin 12:20 Code Status CODE 12/13/24 Transmitted 14:28 Basic Metabolic Panel LAB 12/14/24 In Process 09:20 Date of Service: Dec 14, 2024 Billing Provider: RICARDO ASCENCIO MD Common Visit Codes: NOT BILLABLE RICARDO ASCENCIO MD Dec 14, 2024 11:05
[2024-12-14 11:22] LABS: Anion Gap 11 (5-15); Sodium 137 mmol/L (136-145)
[2024-12-14 11:23] LABS: Calcium 9.8 mg/dL (8.7-10.4)
[2024-12-14 11:26] LABS: Carbon Dioxide 16 mmol/L (20-31); Chloride 110 mmol/L (98-107); Potassium 3.1 mmol/L (3.5-5.1)
[2024-12-14 11:28] LABS: BUN/Creatinine Ratio 16.2 (10.0-20.0); Glucose 105 mg/dL (74-106)
[2024-12-14 11:30] LABS: Blood Urea Nitrogen 27 mg/dL (9-23)
[2024-12-14] MEDS: CHOLESTYRAMINE 4 GM POWDER PO ONE (11:39)
--- NOTE | 2024-12-14 14:19 | DVH ---
Exam: CT CT AB PEL WO CON-NO ORAL OR IV History: diarrhea Comparison Study: None available at time of dictation. TECHNIQUE: Multidetector CT of the abdomen was performed from lung bases to pubic symphysis. Imaging was performed without IV contrast. Axial, coronal and sagittal multiplanar reformats were obtained fr om the axial data set by the technologist. Radiation Dose Information: CT Dose: CTDI volume is 17.28 mGy. Dose-length product is 874.27 mGy*cm FINDINGS: Evaluation of solid organs is limited due to lack of intravenous contrast use. Findings: Lung Bases: No acute or significant lung base finding. Normal heart size. No pleural or pericardial effusion. Liver: Multiple intrahepatic masses. Metastatic disease versus multifocal hepatoma consider MRI disti nguish between the 2. Gallbladder and Biliary Tree: Appears contracted with gallstones Spleen: Unremarkable Pancreas: The pancreas is grossly normal in appearance. Adrenal Glands: Unremarkable Kidneys: Kidneys are grossly normal without calculi or hydronephrosis. Bladder: Grossly unremarkable for degree of distention. Bowel: The stomach is grossly normal in appearance. Small bowel and colon are normal in caliber and d istribution. Colostomy lower left anterior abdominal wall. No findings to suggest bowel obstruction. The appendix is not visualized; however, no secondary findings of acute appendicitis identified. Ascites: Absent Lymphadenopathy: No mesenteric, retroperitoneal or periportal lymphadenopathy. Abdominal Wall and Mesentery: Unremarkable. Vasculature: The visualized abdominal aorta is normal in size and caliber. Evaluation of abdominal a nd pelvic vessels is limited due to lack of intravenous contrast. Pelvic Organs: Unremarkable Musculoskeletal: No aggressive focal bony lesions, acute fractures or dislocation. Lytic lesions invo lving all bony structures suggesting metastatic disease. Soft tissues: Unremarkable IMPRESSION: 1. Multiple intrahepatic masses suggesting metastatic disease. 2. Multiple lytic lesions throughout the bony skeleton suggesting bony metastasis. 3. Colostomy in place no findings to suggest obstruction. Radiation optimization: All CT scans at this facility use at least one of these dose optimization te chniques: automated exposure control mA and/or kV adjustment per patient size (includes targeted exa ms where dose is matched to clinical indication) or iterative reconstruction. HS:Y
--- NOTE | 2024-12-14 18:57 | DVHPN2 ---
Progress Note Date Seen: Dec 14, 2024 Resident Creating Document: KAT SANTA RESIDENT Medical Necessity Reason Pt with a Central, PICC or Fol: No Subjective Review of Systems Patient seen and examined at bedside. Patient continued to have increased output from colostomy bag. Stool study came positive for C diff. CT scan showed metastatic lesions hepatic and spine. Objective vital signs Vital Sign Date Time Temp Pulse Resp B/P (MAP) Pulse Ox O2 Delivery O2 Flow Rate FiO2 12/14/24 16:30 97.5 79 16 123/67 (85) 98 97.5 12/14/24 08:20 Room Air* 0 21 Total Intake and Output 12/13/24 12/13/24 12/14/24 15:00 23:00 07:00 Intake Total 800 ml 1580 ml 0 ml Output Total 740 ml 0 ml Balance 800 ml 840 ml 0 ml medications Current Medications Medications Dose Ordered Sig/Vidhya Route Start Time Stop Time Status Last Admin Dose Admin Nitroglycerin 0.4 mg Q5MINP PRN SL 12/12/24 16:00 Morphine Sulfate 2 mg Q30M PRN IV 12/12/24 16:00 Apixaban 5 mg BID PO 12/12/24 22:00 12/14/24 10:05 5 MG Tamsulosin HCl 0.4 mg HS PO 12/12/24 22:00 12/13/24 21:17 0.4 MG Ferrous Sulfate 325 mg DAILY PO 12/13/24 10:00 12/14/24 10:04 325 MG Sodium Chloride 1,000 ml @ 100 mls/hr Q10H IV 12/12/24 16:00 12/14/24 08:01 100 MLS/HR Oxycodone HCl 5 mg Q8HR PRN PO 12/12/24 16:15 Celecoxib 200 mg DAILY PO 12/13/24 10:00 12/14/24 10:05 200 MG Metronidazole 100 ml @ 100 mls/hr Q8HR IV 12/13/24 06:00 12/14/24 16:06 100 MLS/HR Pantoprazole Sodium 40 mg DAILY@0600 PO 12/14/24 06:00 12/14/24 06:32 40 MG Cholestyramine Resin 4 gm DAILY@11 PO 12/15/24 11:00 Examination General Appearance: Cooperative. Well developed. Well nourished. NAD Head Exam: Normal inspection Neck Exam: Normal inspection. Non-tender. Normal alignment Pulmonary/Respiratory: Chest non-tender. Clear bilateral breath sounds Cardiovascular/Chest: Regular rate and rhythm. No murmurs. No JVD. Peripheral Pulses: 2+ Radial (R). 2+ Radial (L). 2+ Pedal (R). 2+ Pedal (L) Abdominal Exam: Normal bowel sounds. Soft. Nontender. No hepatospenomegaly. No masses, presence of colostomy bag. Ankle Exam: Negative ankle edema Lower extremities: Negative lower extremity edema Neuro/Mental Status: A&O x4. Coherent Thoughts/Psych: Normal thought pattern. Appropriate mood and affect. Good judgement and insight Appearance: In no acute distress Skin Exam: Normal inspection. Normal color. Warm. Dry laboratory and microbiology Laboratory Tests 12/14/24 10:24 12/13/24 10:07 Test 12/14/24 10:24 Range/Units Serum Glucose 105 74-106 mg/dL Microbiology Date/Time Source Procedure Growth Status 12/13/24 08:44 Stool Clostridium difficile Toxin Assay - Final Complete 12/12/24 16:40 Blood Blood Culture - Preliminary NO GROWTH AFTER 48 HOURS OF INCUBATION. Resulted Problem List/Assessment/Plan Problem List/Assessment/Plan Acute C diff colitis Metastatic colon cancer to liver and spine Presence of colostomy bag Dehydration Anemia on chronic disease CHRISTIAN likely hemodynamically mediated. Plan/recommendation Dr Melton -continue with IV Flagyl and oral vancomycin. Stool study came positive for C diff toxin. -diarrhea could be superimposed related to chemotherapy and C diff. -continue with IV fluid for hydration -titrate down IV antibiotics if deemed necessary as per hospitalist team. -replenish electrolytes -CT scan of abdomen and pelvis: Metastatic lesion to liver and bony structures. -we will continue to monitor patient Plan discussed with: Patient, Other My Orders My Orders Orders - KAT SANTA RESIDENT Procedure Category Date Status Time Ct Ab Pel Wo Con-No CT 12/14/24 Resulted Oral Or Iv 11:18 Cholestyramine Powder PHA 12/15/24 In Process (Questran Powder) 11:00 Vancomycin Po PHA 12/14/24 Verified (Vancomycin 22:00 KAT SANTA RESIDENT Dec 14, 2024 18:57
[2024-12-14] MEDS: VANCOMYCIN HCL 250 MG CAP PO ONE (20:43)
[2024-12-14] MEDS: TAMSULOSIN HYDROCHLORIDE 0.4 MG CAP PO SCH (22:34)
[2024-12-15] VITALS (7 sets, daily range): BP systolic 90–112; BP diastolic 44–78; PULSE 60–86; RESP 18–20; TEMP 97.1–98; O2SAT 95–99
[2024-12-15 05:48] LABS: Alanine Aminotransferase 23 U/L (7-40); Albumin 4.3 g/dL (3.2-4.8); Anion Gap 11 (5-15); Aspartate Aminotransferase 32 U/L (13-40); BUN/Creatinine Ratio 15.2 (10.0-20.0); Calcium 9.7 mg/dL (8.7-10.4); Glucose 103 mg/dL (74-106)
[2024-12-15 05:49] LABS: Bilirubin, Total 0.5 mg/dL (0.2-1.0); Total Protein 6.3 g/dL (5.7-8.2)
[2024-12-15] MEDS: VANCOMYCIN HCL 250 MG CAP PO SCH (06:10)
[2024-12-15 06:14] LABS: Eosinophils # (auto) 0.2 10 ^3/uL (0-0.8); Hematocrit 36.7 % (41.0-53.0); Lymphocytes # (auto) 1.3 10 ^3/uL (0.4-5.4); Mean Corpuscular Volume 75.6 fL (80.0-100.0); Neutrophils # (auto) 4.2 10 ^3/uL (1.6-8.6)
[2024-12-15 06:17] LABS: Basophils # (auto) 0.1 10 ^3/uL (0-0.2); Basophils % (auto) 0.9 % (0.0-2.0); Eosinophils % (auto) 2.6 % (0.0-7.0); Hemoglobin 10.9 g/dL (13.5-17.5); Lymphocytes % (auto) 19.6 % (10.0-50.0); Mean Corpuscular Hemoglobin 22.4 pg (28.0-32.0); Mean Corpuscular Hgb Conc. 29.6 g/dL (32.0-36.0); Monocytes % (auto) 15.4 % (0.0-12.0); Neutrophils % (auto) 61.5 % (37.0-80.0); Nucleated Red Blood Cells % 0.3 %; Platelet Count (auto) 300 10^3/uL (140-450); Red Blood Cells 4.86 10^6/uL (4.5-5.90); Red Cell Distribution Width 24.3 % (11.8-14.3); White Blood Cell 6.8 10^3/uL (4.4-10.8)
[2024-12-15 06:27] LABS: Alkaline Phosphatase 147 U/L (46-116); Blood Urea Nitrogen 24 mg/dL (9-23); Carbon Dioxide 15 mmol/L (20-31); Chloride 109 mmol/L (98-107); Potassium 2.8 mmol/L (3.5-5.1); Sodium 135 mmol/L (136-145)
[2024-12-15] MEDS: POTASSIUM CHL 20 Meq TABLET PO ONE (10:01)
[2024-12-15] MEDS: SODIUM CHLORIDE 0.9% 1,000 ML IV SCH (10:06)
[2024-12-15] MEDS: CHOLESTYRAMINE 4 GM POWDER PO SCH (10:50)
--- NOTE | 2024-12-15 11:57 | DVHPN2 ---
Subjective The diarrhea is much better The C diff came back positive Potassium 2.8 Creatinine 1.5 Changes from previous H/P or p: Changes Eyes: No Pain, No Vision change, No Conjunctivae inflammation, No Eyelid inflammation, No Other, No Redness ENT: No Ear pain, No Ear discharge, No Nose pain, No Nose discharge, No Nose congestion, No Mouth pain, No Mouth swelling, No Throat pain, No Throat swelling, No Other Cardiovascular: No Chest Pain, No Palpitations, No Orthopnea, No Paroxysmal Noc. Dyspnea, No Edema, No Lt Headedness, No Other Respiratory: No Cough, No Dry, No Shortness of breath, No SOB with excertion, No Wheezing, No Hemoptysis, No Pleuritic Pain, No Sputum, No Other Gastrointestinal: Other (Oral intake) Genitourinary: No Dysuria, No Frequency, No Incontinence, No Hematuria, No Retention, No Other Musculoskeletal: No other, No neck pain, No shoulder pain, No arm pain, No back pain, No hand pain, No leg pain, No foot pain Skin: No Rash, No Lesions, No Jaundice, No Bruising, No Other Objective Vitals Vital Signs Date Time Temp Pulse Resp B/P (MAP) Pulse Ox O2 Delivery O2 Flow Rate FiO2 12/15/24 08:20 Room Air* 0 21 12/15/24 07:55 97.6 69 20 103/44 (63) 96 97.6 Intake/Output Intake and Output 12/15/24 07:00 Intake Total 2600 ml Output Total 300 ml Balance 2300 ml Intake Oral 800 ml IV Total 1800 ml Output Urine Total 300 ml # Voids 3 # Bowel Movements 8 General Appearance: Alert, Oriented X3 Lungs: Clear to auscultation, Normal air movement Cardiovascular: Regular rate, Normal S1, Normal S2 Extremities: No edema Medications Current Medications Medications Dose Ordered Sig/Vidhya Route Start Time Stop Time Status Last Admin Dose Admin Nitroglycerin 0.4 mg Q5MINP PRN SL 12/12/24 16:00 Morphine Sulfate 2 mg Q30M PRN IV 12/12/24 16:00 Apixaban 5 mg BID PO 12/12/24 22:00 12/15/24 10:02 5 MG Ferrous Sulfate 325 mg DAILY PO 12/13/24 10:00 12/15/24 10:02 325 MG Oxycodone HCl 5 mg Q8HR PRN PO 12/12/24 16:15 Celecoxib 200 mg DAILY PO 12/13/24 10:00 12/15/24 10:03 200 MG Metronidazole 100 ml @ 100 mls/hr Q8HR IV 12/13/24 06:00 12/15/24 06:10 100 MLS/HR Cholestyramine Resin 4 gm DAILY@11 PO 12/15/24 11:00 12/15/24 10:50 4 GM Vancomycin HCl 250 mg QID PO 12/15/24 06:00 12/15/24 06:10 250 MG Tamsulosin HCl 0.4 mg HS PO 12/14/24 22:30 12/14/24 22:34 0.4 MG Sodium Chloride 1,000 ml @ 125 mls/hr Q8H IV 12/15/24 09:30 12/15/24 10:06 125 MLS/HR Laboratory Results Laboratory Tests 12/15/24 05:10 Chemistry Test 12/15/24 05:10 Albumin 4.3 g/dL (3.2-4.8) Calcium Level 9.7 mg/dL (8.7-10.4) Magnesium Level 2.0 mg/dL (1.6-2.6) Total Protein 6.3 g/dL (5.7-8.2) LFT Test 12/15/24 05:10 Alanine Aminotransferase (ALT) 23 U/L (7-40) Alkaline Phosphatase 147 U/L (46-116) H Aspartate Amino Transferase (AST) 32 U/L (13-40) Total Bilirubin 0.5 mg/dL (0.2-1.0) Urinalysis Test 12/12/24 15:38 Urine Color Yellow (Yellow) Urine Clarity Turbid (Clear) H Urine pH 6.0 (5.0-9.0) Urine Specific [place] 1.022 (1.001-1.035) Urine Protein 1+ (Negative) H Urine Ketones Negative (Negative) Urine Blood 3+ /uL (Negative) H Urine Nitrite Negative (Negative) Urine Bilirubin Negative (Negative) Urine Urobilinogen Normal mg/dL (Negative) Urine Leukocyte Esterase Negative /uL (Negative) Urine RBC 216 /hpf (0 - 3) Urine Microscopic WBC 1 /HPF (0-3) Urine Squamous Epithelial Cells None seen /hpf (<5) Urine Bacteria None seen /hpf (None Seen) Urine Hyaline Casts Mod /lpf (0 - 2) Urine Mucus Few (None Seen) Urine Yeast (Budding) Occasional /hpf (None Urine Glucose Normal mg/dL (Normal) Microbiology Microbiology Date/Time Source Procedure Growth Status 12/13/24 08:44 Stool Clostridium difficile Toxin Assay - Final Complete 12/12/24 16:40 Blood Blood Culture - Preliminary NO GROWTH AFTER 48 HOURS OF INCUBATION. Resulted Assessment/Plan Assessment/Plan Hypovolemic hypotension due to dehydration Dehydration Diarrhea Metastatic colon cancer to the liver Atrial fibrillation on Eliquis Leukocytosis rule out sepsis History of multiple myeloma in remission Rule out C diff colitis Chronic anemia Hypokalemia Acute kidney injury hemodynamically mediated Diff colitis Plan Continue IV fluids Get a stool sample for C diff and stool culture GI consult IV Flagyl Discontinue Rocephin Eliquis 5 mg twice a day Ferrous sulfate 325 mg daily Protonix 40 mg daily Replace potassium Discussed with the daughter at the bedside Full code 12/14/2024: Replace potassium magnesium as needed Continue IV Flagyl GI consult is on board Monitor closely 12/15/2024: C diff colitis: Continue p.o. vancomycin and IV Flagyl CHRISTIAN: Continue IV fluid Hypokalemia: Give more potassium AFib: Continue Eliquis Monitor closely The rest of the management will depend on the hospital course Plan discussed with: Patient My Orders Orders - RICARDO ASCENCIO MD Procedure Category Date Status Time Sodium Chloride 0.9% PHA 12/15/24 In Process 09:30 Date of Service: Dec 15, 2024 Billing Provider: RICARDO ASCENCIO MD Common Visit Codes: NOT BILLABLE RICARDO ASCENCIO MD Dec 15, 2024 11:56
[2024-12-15] MEDS ORDERED: DIPHENOXYLATE W/ATROPINE 2.5 MG TAB PO PRN (12:30)
--- NOTE | 2024-12-15 14:47 | DVHPN2 ---
Progress Note Date Seen: Dec 15, 2024 Resident Creating Document: KAT SANTA RESIDENT Medical Necessity Reason Pt with a Central, PICC or Fol: No Subjective Review of Systems Patient seen and examined at bedside. Patient continued have high output from colostomy bag. No any other new complaints. Objective vital signs Vital Sign Date Time Temp Pulse Resp B/P (MAP) Pulse Ox O2 Delivery O2 Flow Rate FiO2 12/15/24 12:13 97.7 78 18 97/66 (76) 99 97.7 12/15/24 08:20 Room Air* 0 21 Total Intake and Output 12/14/24 12/14/24 12/15/24 15:00 23:00 07:00 Intake Total 600 ml 1100 ml 900 ml Output Total 300 ml Balance 600 ml 1100 ml 600 ml medications Current Medications Medications Dose Ordered Sig/Vidhya Route Start Time Stop Time Status Last Admin Dose Admin Nitroglycerin 0.4 mg Q5MINP PRN SL 12/12/24 16:00 Morphine Sulfate 2 mg Q30M PRN IV 12/12/24 16:00 Apixaban 5 mg BID PO 12/12/24 22:00 12/15/24 10:02 5 MG Ferrous Sulfate 325 mg DAILY PO 12/13/24 10:00 12/15/24 10:02 325 MG Oxycodone HCl 5 mg Q8HR PRN PO 12/12/24 16:15 Celecoxib 200 mg DAILY PO 12/13/24 10:00 12/15/24 10:03 200 MG Metronidazole 100 ml @ 100 mls/hr Q8HR IV 12/13/24 06:00 12/15/24 14:12 100 MLS/HR Cholestyramine Resin 4 gm DAILY@11 PO 12/15/24 11:00 12/15/24 10:50 4 GM Vancomycin HCl 250 mg QID PO 12/15/24 06:00 12/15/24 12:02 250 MG Tamsulosin HCl 0.4 mg HS PO 12/14/24 22:30 12/14/24 22:34 0.4 MG Sodium Chloride 1,000 ml @ 125 mls/hr Q8H IV 12/15/24 09:30 12/15/24 10:06 125 MLS/HR Diphenoxylate HCl/ Atropine 2.5 mg Q6HP PRN PO 12/15/24 12:30 Examination General Appearance: Cooperative. Well developed. Well nourished. NAD Head Exam: Normal inspection Neck Exam: Normal inspection. Non-tender. Normal alignment Pulmonary/Respiratory: Chest non-tender. Clear bilateral breath sounds Cardiovascular/Chest: Regular rate and rhythm. No murmurs. No JVD. Peripheral Pulses: 2+ Radial (R). 2+ Radial (L). 2+ Pedal (R). 2+ Pedal (L) Abdominal Exam: Normal bowel sounds. Soft. Nontender. No hepatospenomegaly. No masses, presence of colostomy bag. Ankle Exam: Negative ankle edema Lower extremities: Negative lower extremity edema Neuro/Mental Status: A&O x4. Coherent Thoughts/Psych: Normal thought pattern. Appropriate mood and affect. Good judgement and insight Appearance: In no acute distress Skin Exam: Normal inspection. Normal color. Warm. Dry laboratory and microbiology Laboratory Tests 12/15/24 05:10 Test 12/15/24 05:10 Range/Units Serum Glucose 103 74-106 mg/dL Microbiology Date/Time Source Procedure Growth Status 12/13/24 08:44 Stool Clostridium difficile Toxin Assay - Final Complete 12/12/24 16:40 Blood Blood Culture - Preliminary NO GROWTH AFTER 48 HOURS OF INCUBATION. Resulted Problem List/Assessment/Plan Problem List/Assessment/Plan Acute C diff colitis Metastatic colon cancer to liver and spine Presence of colostomy bag Dehydration Anemia on chronic disease CHRISTIAN likely hemodynamically mediated. Plan/recommendation Dr Melton -continue with IV Flagyl and oral vancomycin. Stool study came positive for C diff toxin. -diarrhea could be superimposed related to chemotherapy and C diff. -continue with IV fluid for hydration -titrate down IV antibiotics if deemed necessary as per hospitalist team. -replenish electrolytes -CT scan of abdomen and pelvis: Metastatic lesion to liver and bony structures. -we will continue to monitor patient Plan discussed with: Patient, Other (RN) My Orders My Orders Orders - KAT SANTA Procedure Category Date Status Time Vancomycin Po PHA 12/15/24 In Process (Vancomycin 06:00 KAT SANTA RESIDENT Dec 15, 2024 14:46
[2024-12-16] VITALS (9 sets, daily range): BP systolic 92–113; BP diastolic 54–78; PULSE 55–77; RESP 16–20; TEMP 97.5–98.4; O2SAT 95–99
[2024-12-16 07:50] LABS: Alanine Aminotransferase 17 U/L (7-40); BUN/Creatinine Ratio 17.4 (10.0-20.0); Blood Urea Nitrogen 23 mg/dL (9-23); Glucose 89 mg/dL (74-106); Magnesium 1.9 mg/dL (1.6-2.6)
[2024-12-16 07:51] LABS: Albumin 3.6 g/dL (3.2-4.8); Alkaline Phosphatase 120 U/L (46-116); Anion Gap 11 (5-15); Aspartate Aminotransferase 29 U/L (13-40); Calcium 8.9 mg/dL (8.7-10.4); Carbon Dioxide 14 mmol/L (20-31); Chloride 112 mmol/L (98-107); Potassium 3.5 mmol/L (3.5-5.1); Sodium 137 mmol/L (136-145)
[2024-12-16 07:53] LABS: Total Protein 5.2 g/dL (5.7-8.2)
[2024-12-16 07:59] LABS: Bilirubin, Total 0.3 mg/dL (0.2-1.0)
[2024-12-16] MEDS: FLORASTOR (S. BOULARDII) 250 MG CAP PO SCH (09:36)
--- NOTE | 2024-12-16 12:08 | DVHPN2 ---
Subjective He is feeling better The diarrhea is better Potassium is controlled Creatinine is better at 1.3 Changes from previous H/P or p: Changes Eyes: No Pain, No Vision change, No Conjunctivae inflammation, No Eyelid inflammation, No Other, No Redness ENT: No Ear pain, No Ear discharge, No Nose pain, No Nose discharge, No Nose congestion, No Mouth pain, No Mouth swelling, No Throat pain, No Throat swelling, No Other Cardiovascular: No Chest Pain, No Palpitations, No Orthopnea, No Paroxysmal Noc. Dyspnea, No Edema, No Lt Headedness, No Other Respiratory: No Cough, No Dry, No Shortness of breath, No SOB with excertion, No Wheezing, No Hemoptysis, No Pleuritic Pain, No Sputum, No Other Gastrointestinal: Other (Oral intake) Genitourinary: No Dysuria, No Frequency, No Incontinence, No Hematuria, No Retention, No Other Musculoskeletal: No other, No neck pain, No shoulder pain, No arm pain, No back pain, No hand pain, No leg pain, No foot pain Skin: No Rash, No Lesions, No Jaundice, No Bruising, No Other Objective Vitals Vital Signs Date Time Temp Pulse Resp B/P (MAP) Pulse Ox O2 Delivery O2 Flow Rate FiO2 12/16/24 08:53 97.7 77 17 110/78 (89) 99 97.7 12/16/24 08:00 Room Air* 0 21 Intake/Output Intake and Output 12/16/24 07:00 Intake Total 2935 ml Output Total 1950 ml Balance 985 ml Intake Oral 1760 ml IV Total 1175 ml Output Urine Total 950 ml Stool Total 1000 ml # Voids 4 # Bowel Movements 4 General Appearance: Alert, Oriented X3 Lungs: Clear to auscultation, Normal air movement Cardiovascular: Regular rate, Normal S1, Normal S2 Extremities: No edema Medications Current Medications Medications Dose Ordered Sig/Vidhya Route Start Time Stop Time Status Last Admin Dose Admin Nitroglycerin 0.4 mg Q5MINP PRN SL 12/12/24 16:00 Morphine Sulfate 2 mg Q30M PRN IV 12/12/24 16:00 Apixaban 5 mg BID PO 12/12/24 22:00 12/16/24 09:36 5 MG Ferrous Sulfate 325 mg DAILY PO 12/13/24 10:00 12/16/24 09:35 325 MG Oxycodone HCl 5 mg Q8HR PRN PO 12/12/24 16:15 Celecoxib 200 mg DAILY PO 12/13/24 10:00 12/16/24 09:36 200 MG Metronidazole 100 ml @ 100 mls/hr Q8HR IV 12/13/24 06:00 12/16/24 06:48 100 MLS/HR Cholestyramine Resin 4 gm DAILY@11 PO 12/15/24 11:00 12/16/24 09:35 4 GM Vancomycin HCl 250 mg QID PO 12/15/24 06:00 12/16/24 06:00 250 MG Tamsulosin HCl 0.4 mg HS PO 12/14/24 22:30 12/15/24 21:35 0.4 MG Sodium Chloride 1,000 ml @ 125 mls/hr Q8H IV 12/15/24 09:30 12/15/24 10:06 125 MLS/HR Diphenoxylate HCl/ Atropine 2.5 mg Q6HP PRN PO 12/15/24 12:30 Saccharomyces Boulardii 250 mg DAILY PO 12/16/24 10:00 12/16/24 09:36 250 MG Laboratory Results Laboratory Tests 12/15/24 05:10 12/16/24 06:39 Chemistry Test 12/16/24 06:39 Albumin 3.6 g/dL (3.2-4.8) Calcium Level 8.9 mg/dL (8.7-10.4) Magnesium Level 1.9 mg/dL (1.6-2.6) Total Protein 5.2 g/dL (5.7-8.2) L LFT Test 12/16/24 06:39 Alanine Aminotransferase (ALT) 17 U/L (7-40) Alkaline Phosphatase 120 U/L (46-116) H Aspartate Amino Transferase (AST) 29 U/L (13-40) Total Bilirubin 0.3 mg/dL (0.2-1.0) Urinalysis Test 12/12/24 15:38 Urine Color Yellow (Yellow) Urine Clarity Turbid (Clear) H Urine pH 6.0 (5.0-9.0) Urine Specific [place] 1.022 (1.001-1.035) Urine Protein 1+ (Negative) H Urine Ketones Negative (Negative) Urine Blood 3+ /uL (Negative) H Urine Nitrite Negative (Negative) Urine Bilirubin Negative (Negative) Urine Urobilinogen Normal mg/dL (Negative) Urine Leukocyte Esterase Negative /uL (Negative) Urine RBC 216 /hpf (0 - 3) Urine Microscopic WBC 1 /HPF (0-3) Urine Squamous Epithelial Cells None seen /hpf (<5) Urine Bacteria None seen /hpf (None Seen) Urine Hyaline Casts Mod /lpf (0 - 2) Urine Mucus Few (None Seen) Urine Yeast (Budding) Occasional /hpf (None Urine Glucose Normal mg/dL (Normal) Microbiology Microbiology Date/Time Source Procedure Growth Status 12/13/24 08:44 Stool Clostridium difficile Toxin Assay - Final Complete 12/12/24 16:40 Blood Blood Culture - Preliminary NO GROWTH AFTER 72 HOURS OF INCUBATION. Resulted Assessment/Plan Assessment/Plan Hypovolemic hypotension due to dehydration Dehydration Diarrhea Metastatic colon cancer to the liver Atrial fibrillation on Eliquis Leukocytosis rule out sepsis History of multiple myeloma in remission Rule out C diff colitis Chronic anemia Hypokalemia Acute kidney injury hemodynamically mediated C. Diff colitis Plan Continue IV fluids Get a stool sample for C diff and stool culture GI consult IV Flagyl Discontinue Rocephin Eliquis 5 mg twice a day Ferrous sulfate 325 mg daily Protonix 40 mg daily Replace potassium Discussed with the daughter at the bedside Full code 12/14/2024: Replace potassium magnesium as needed Continue IV Flagyl GI consult is on board Monitor closely 12/15/2024: C diff colitis: Continue p.o. vancomycin and IV Flagyl CHRISTIAN: Continue IV fluid Hypokalemia: Give more potassium AFib: Continue Eliquis Monitor closely The rest of the management will depend on the hospital course 12/16/2024: Dehydration, acute kidney injury: Continue IV fluids: Lower the rate to 75 mL an hour Continue IV Flagyl and p.o. vancomycin Atrial fibrillation: Continue Eliquis Out of bed as tolerated Consult Physical therapy Monitor closely Discharge planning in 1-2 days Plan discussed with: Patient Date of Service: Dec 16, 2024 Billing Provider: RICARDO ASCENCIO MD Common Visit Codes: NOT BILLABLE RICARDO ASCENCIO MD Dec 16, 2024 12:08
--- NOTE | 2024-12-16 12:33 | DVHPN2 ---
Progress Note Date Seen: Dec 16, 2024 Resident Creating Document: ALFONZO ZURITA RESIDENT Medical Necessity Reason Pt with a Central, PICC or Fol: No Subjective Review of Systems Patient was seen and examined on the bedside. He is alert, Oriented x3. Mentioned improvement of diarrhea and 4 bowel movement in last 24 hours which was semisolid nature. Consulted hemato oncology Dr. James because of patient's request for his metastatic colon cancer. No other active complaint. Objective vital signs Vital Sign Date Time Temp Pulse Resp B/P (MAP) Pulse Ox O2 Delivery O2 Flow Rate FiO2 12/16/24 08:53 97.7 77 17 110/78 (89) 99 97.7 12/16/24 08:00 Room Air* 0 21 Total Intake and Output 12/15/24 12/15/24 12/16/24 15:00 23:00 07:00 Intake Total 600 ml 1535 ml 800 ml Output Total 350 ml 1600 ml Balance 250 ml -65 ml 800 ml medications Current Medications Medications Dose Ordered Sig/Vidhya Route Start Time Stop Time Status Last Admin Dose Admin Nitroglycerin 0.4 mg Q5MINP PRN SL 12/12/24 16:00 Morphine Sulfate 2 mg Q30M PRN IV 12/12/24 16:00 Apixaban 5 mg BID PO 12/12/24 22:00 12/16/24 09:36 5 MG Ferrous Sulfate 325 mg DAILY PO 12/13/24 10:00 12/16/24 09:35 325 MG Oxycodone HCl 5 mg Q8HR PRN PO 12/12/24 16:15 Celecoxib 200 mg DAILY PO 12/13/24 10:00 12/16/24 09:36 200 MG Metronidazole 100 ml @ 100 mls/hr Q8HR IV 12/13/24 06:00 12/16/24 06:48 100 MLS/HR Cholestyramine Resin 4 gm DAILY@11 PO 12/15/24 11:00 12/16/24 09:35 4 GM Vancomycin HCl 250 mg QID PO 12/15/24 06:00 12/16/24 06:00 250 MG Tamsulosin HCl 0.4 mg HS PO 12/14/24 22:30 12/15/24 21:35 0.4 MG Diphenoxylate HCl/ Atropine 2.5 mg Q6HP PRN PO 12/15/24 12:30 Saccharomyces Boulardii 250 mg DAILY PO 12/16/24 10:00 12/16/24 09:36 250 MG Sodium Chloride 1,000 ml @ 75 mls/hr [id number] IV 12/16/24 12:15 UNV Examination Physical examination: General Appearance: Alert, Oriented X3, Cooperative, No acute distress HEENT: Atraumatic, PERRLA, EOMI, Mucous membrane moist/pink Respiratory: Clear to auscultation, Normal air movement Cardiovascular: Regular rate, Normal S1, Normal S2, No murmurs, no chest wall tenderness Abdominal: Normal bowel sounds, Soft, No tenderness, No hepatospenomegaly, No masses Extremities: No clubbing, No cyanosis, No edema, Normal pulses, No tenderness/swelling Skin: No rashes, No breakdown, No significant lesion Neuro: Normal gait, Normal speech, Strength at 5/5 X4 ext, Normal tone, Sensation intact, grossly intact cranial nerves. Psych/Mental Status: Mental status NL, Mood NL laboratory and microbiology Laboratory Tests 12/16/24 06:39 12/15/24 05:10 Test 12/16/24 06:39 Range/Units Serum Glucose 89 74-106 mg/dL Microbiology Date/Time Source Procedure Growth Status 12/13/24 08:44 Stool Clostridium difficile Toxin Assay - Final Complete 12/12/24 16:40 Blood Blood Culture - Preliminary NO GROWTH AFTER 72 HOURS OF INCUBATION. Resulted Labs and/or images reviewed: Labs reviewed by me, Image(s) reviewed by me Problem List/Assessment/Plan Problem List/Assessment/Plan Assessment: Acute C diff colitis Metastatic colon cancer to liver and spine Presence of colostomy bag Dehydration Anemia on chronic disease CHRISTIAN likely hemodynamically mediated. Plan: -continue with IV Flagyl and oral vancomycin and probiotic. -diarrhea could be superimposed related to chemotherapy and C diff. -continue with IV fluid for hydration -titrate down IV antibiotics if deemed necessary as per hospitalist team. -replenish electrolytes -CT scan of abdomen and pelvis: Metastatic lesion to liver and bony structures. - Consulted hemato-oncology Dr. James as per patient request for metastatic colon cancer. - Physical therapy -we will continue to monitor patient Plan discussed with Dr. Melton Plan discussed with: Patient, Other ALFONZO ZURITA RESIDENT Dec 16, 2024 12:33
[2024-12-16] MEDS: SODIUM CHLORIDE 0.9% 1,000 ML IV SCH (12:58)
[2024-12-17] VITALS (8 sets, daily range): BP systolic 97–102; BP diastolic 43–68; PULSE 43–65; RESP 16–19; TEMP 97.2–97.9; O2SAT 95–100
[2024-12-17 07:47] LABS: Sodium 138 mmol/L (136-145)
[2024-12-17 07:48] LABS: Anion Gap 9 (5-15)
[2024-12-17 07:53] LABS: BUN/Creatinine Ratio 16.4 (10.0-20.0); Blood Urea Nitrogen 19 mg/dL (9-23); Glucose 92 mg/dL (74-106)
[2024-12-17 08:06] LABS: Calcium 8.6 mg/dL (8.7-10.4); Carbon Dioxide 16 mmol/L (20-31); Chloride 113 mmol/L (98-107); Potassium 3.4 mmol/L (3.5-5.1)
--- NOTE | 2024-12-17 10:52 | DVHPN2 ---
Progress Note Date Seen: Dec 17, 2024 Resident Creating Document: KAT SANTA RESIDENT Medical Necessity Reason Pt with a Central, PICC or Fol: No Subjective Review of Systems Patient is seen and examined at bedside. Stool consistency is improving to semi solid now, 2-3 bowel movements per 24 hours. No any new complaints. No nausea, no vomiting, no abdominal pain. No fever. Objective vital signs Vital Sign Date Time Temp Pulse Resp B/P (MAP) Pulse Ox O2 Delivery O2 Flow Rate FiO2 12/17/24 09:00 97.5 49 16 98/43 (61) 98 97.5 12/17/24 08:15 Room Air* 0 21 Total Intake and Output 12/16/24 12/16/24 12/17/24 15:00 23:00 07:00 Intake Total 1625 ml 250 ml 1400 ml Output Total 3 ml 300 ml Balance 1625 ml 247 ml 1100 ml medications Current Medications Medications Dose Ordered Sig/Vidhya Route Start Time Stop Time Status Last Admin Dose Admin Nitroglycerin 0.4 mg Q5MINP PRN SL 12/12/24 16:00 Morphine Sulfate 2 mg Q30M PRN IV 12/12/24 16:00 Apixaban 5 mg BID PO 12/12/24 22:00 12/17/24 09:27 5 MG Ferrous Sulfate 325 mg DAILY PO 12/13/24 10:00 12/17/24 09:27 325 MG Oxycodone HCl 5 mg Q8HR PRN PO 12/12/24 16:15 Celecoxib 200 mg DAILY PO 12/13/24 10:00 12/16/24 09:36 200 MG Metronidazole 100 ml @ 100 mls/hr Q8HR IV 12/13/24 06:00 12/17/24 06:40 100 MLS/HR Cholestyramine Resin 4 gm DAILY@11 PO 12/15/24 11:00 12/16/24 09:35 4 GM Vancomycin HCl 250 mg QID PO 12/15/24 06:00 12/17/24 06:40 250 MG Tamsulosin HCl 0.4 mg HS PO 12/14/24 22:30 12/16/24 23:15 0.4 MG Diphenoxylate HCl/ Atropine 2.5 mg Q6HP PRN PO 12/15/24 12:30 Saccharomyces Boulardii 250 mg DAILY PO 12/16/24 10:00 12/17/24 09:27 250 MG Sodium Chloride 1,000 ml @ 75 mls/hr [id number] IV 12/16/24 12:15 12/16/24 12:58 75 MLS/HR Examination General Appearance: Cooperative. Well developed. Well nourished. NAD Head Exam: Normal inspection Neck Exam: Normal inspection. Non-tender. Normal alignment Pulmonary/Respiratory: Chest non-tender. Clear bilateral breath sounds Cardiovascular/Chest: Regular rate and rhythm. No murmurs. No JVD. Peripheral Pulses: 2+ Radial (R). 2+ Radial (L). 2+ Pedal (R). 2+ Pedal (L) Abdominal Exam: Normal bowel sounds. Soft. Nontender. No hepatospenomegaly. No masses, presence of colostomy bag. Ankle Exam: Negative ankle edema Lower extremities: Negative lower extremity edema Neuro/Mental Status: A&O x4. Coherent Thoughts/Psych: Normal thought pattern. Appropriate mood and affect. Good judgement and insight Appearance: In no acute distress Skin Exam: Normal inspection. Normal color. Warm. Dry laboratory and microbiology Laboratory Tests 12/17/24 06:56 12/15/24 05:10 Test 12/17/24 06:56 Range/Units Serum Glucose 92 74-106 mg/dL Microbiology Date/Time Source Procedure Growth Status 12/13/24 08:44 Stool Clostridium difficile Toxin Assay - Final Complete 12/12/24 16:40 Blood Blood Culture - Preliminary NO GROWTH AFTER 72 HOURS OF INCUBATION. Resulted Problem List/Assessment/Plan Problem List/Assessment/Plan Acute C diff colitis Metastatic colon cancer to liver and spine Presence of colostomy bag Dehydration Anemia on chronic disease CHRISTIAN likely hemodynamically mediated. bradycardia Plan/recommendation Dr Melton -continue with IV Flagyl and oral vancomycin. Stool study came positive for C diff toxin. -diarrhea could be superimposed related to chemotherapy and C diff. -continue with IV fluid for hydration -titrate down IV antibiotics if deemed necessary as per hospitalist team. -replenish electrolytes -CT scan of abdomen and pelvis: Metastatic lesion to liver and bony structures. -Bradycardia: Cardio is consulted -we will continue to monitor patient Plan discussed with: Patient, Other KAT SANTA RESIDENT Dec 17, 2024 10:52
--- NOTE | 2024-12-17 11:40 | DVHPN2 ---
Subjective He is feeling better Diarrhea is better Changes from previous H/P or p: Changes Eyes: No Pain, No Vision change, No Conjunctivae inflammation, No Eyelid inflammation, No Other, No Redness ENT: No Ear pain, No Ear discharge, No Nose pain, No Nose discharge, No Nose congestion, No Mouth pain, No Mouth swelling, No Throat pain, No Throat swelling, No Other Cardiovascular: No Chest Pain, No Palpitations, No Orthopnea, No Paroxysmal Noc. Dyspnea, No Edema, No Lt Headedness, No Other Respiratory: No Cough, No Dry, No Shortness of breath, No SOB with excertion, No Wheezing, No Hemoptysis, No Pleuritic Pain, No Sputum, No Other Gastrointestinal: Other (Oral intake) Genitourinary: No Dysuria, No Frequency, No Incontinence, No Hematuria, No Retention, No Other Musculoskeletal: No other, No neck pain, No shoulder pain, No arm pain, No back pain, No hand pain, No leg pain, No foot pain Skin: No Rash, No Lesions, No Jaundice, No Bruising, No Other Objective Vitals Vital Signs Date Time Temp Pulse Resp B/P (MAP) Pulse Ox O2 Delivery O2 Flow Rate FiO2 12/17/24 09:00 97.5 49 16 98/43 (61) 98 97.5 12/17/24 08:15 Room Air* 0 21 Intake/Output Intake and Output 12/17/24 07:00 Intake Total 3275 ml Output Total 303 ml Balance 2972 ml Intake Oral 1300 ml IV Total 1975 ml Output Urine Total 303 ml # Voids 2 General Appearance: Alert, Oriented X3 Lungs: Clear to auscultation, Normal air movement Cardiovascular: Regular rate, Normal S1, Normal S2 Extremities: No edema Medications Current Medications Medications Dose Ordered Sig/Vidhya Route Start Time Stop Time Status Last Admin Dose Admin Nitroglycerin 0.4 mg Q5MINP PRN SL 12/12/24 16:00 Morphine Sulfate 2 mg Q30M PRN IV 12/12/24 16:00 Apixaban 5 mg BID PO 12/12/24 22:00 12/17/24 09:27 5 MG Ferrous Sulfate 325 mg DAILY PO 12/13/24 10:00 12/17/24 09:27 325 MG Oxycodone HCl 5 mg Q8HR PRN PO 12/12/24 16:15 Celecoxib 200 mg DAILY PO 12/13/24 10:00 12/16/24 09:36 200 MG Metronidazole 100 ml @ 100 mls/hr Q8HR IV 12/13/24 06:00 12/17/24 06:40 100 MLS/HR Cholestyramine Resin 4 gm DAILY@11 PO 12/15/24 11:00 12/16/24 09:35 4 GM Vancomycin HCl 250 mg QID PO 12/15/24 06:00 12/17/24 06:40 250 MG Tamsulosin HCl 0.4 mg HS PO 12/14/24 22:30 12/16/24 23:15 0.4 MG Diphenoxylate HCl/ Atropine 2.5 mg Q6HP PRN PO 12/15/24 12:30 Saccharomyces Boulardii 250 mg DAILY PO 12/16/24 10:00 12/17/24 09:27 250 MG Sodium Chloride 1,000 ml @ 75 mls/hr [id number] IV 12/16/24 12:15 12/16/24 12:58 75 MLS/HR Laboratory Results Laboratory Tests 12/15/24 05:10 12/17/24 06:56 Chemistry Test 12/17/24 06:56 Calcium Level 8.6 mg/dL (8.7-10.4) L Urinalysis Test 12/12/24 15:38 Urine Color Yellow (Yellow) Urine Clarity Turbid (Clear) H Urine pH 6.0 (5.0-9.0) Urine Specific [place] 1.022 (1.001-1.035) Urine Protein 1+ (Negative) H Urine Ketones Negative (Negative) Urine Blood 3+ /uL (Negative) H Urine Nitrite Negative (Negative) Urine Bilirubin Negative (Negative) Urine Urobilinogen Normal mg/dL (Negative) Urine Leukocyte Esterase Negative /uL (Negative) Urine RBC 216 /hpf (0 - 3) Urine Microscopic WBC 1 /HPF (0-3) Urine Squamous Epithelial Cells None seen /hpf (<5) Urine Bacteria None seen /hpf (None Seen) Urine Hyaline Casts Mod /lpf (0 - 2) Urine Mucus Few (None Seen) Urine Yeast (Budding) Occasional /hpf (None Urine Glucose Normal mg/dL (Normal) Microbiology Microbiology Date/Time Source Procedure Growth Status 12/13/24 08:44 Stool Clostridium difficile Toxin Assay - Final Complete 12/12/24 16:40 Blood Blood Culture - Preliminary NO GROWTH AFTER 72 HOURS OF INCUBATION. Resulted Assessment/Plan Assessment/Plan Hypovolemic hypotension due to dehydration Dehydration Diarrhea Metastatic colon cancer to the liver Atrial fibrillation on Eliquis Leukocytosis rule out sepsis History of multiple myeloma in remission Rule out C diff colitis Chronic anemia Hypokalemia Acute kidney injury hemodynamically mediated C. Diff colitis Plan Continue IV fluids Get a stool sample for C diff and stool culture GI consult IV Flagyl Discontinue Rocephin Eliquis 5 mg twice a day Ferrous sulfate 325 mg daily Protonix 40 mg daily Replace potassium Discussed with the daughter at the bedside Full code 12/14/2024: Replace potassium magnesium as needed Continue IV Flagyl GI consult is on board Monitor closely 12/15/2024: C diff colitis: Continue p.o. vancomycin and IV Flagyl CHRISTIAN: Continue IV fluid Hypokalemia: Give more potassium AFib: Continue Eliquis Monitor closely The rest of the management will depend on the hospital course 12/16/2024: Dehydration, acute kidney injury: Continue IV fluids: Lower the rate to 75 mL an hour Continue IV Flagyl and p.o. vancomycin Atrial fibrillation: Continue Eliquis Out of bed as tolerated Consult Physical therapy Monitor closely Discharge planning in 1-2 days 12/17/2024: Continue the current management Discontinue the IV fluids Continue the IV Flagyl and p.o. vancomycin Out of bed and physical therapy Replace the potassium Plan discussed with: Patient My Orders Orders - RICARDO ASCENCIO MD Procedure Category Date Status Time Sodium Chloride 0.9% PHA 12/16/24 In Process 12:15 Pt Request For Service PT 12/16/24 Logged 12:07 Apply: [facility] 12/16/24 In Process 17:37 Date of Service: Dec 17, 2024 Billing Provider: RICARDO ASCENCIO MD Common Visit Codes: NOT BILLABLE RICARDO ASCENCIO MD Dec 17, 2024 11:40
[2024-12-17] MEDS: POTASSIUM CHL 20 Meq TABLET PO ONE (12:05)
[2024-12-18 01:00] VITALS: BP 105/56; PULSE 83; RESP 18; TEMP 97.4; O2SAT 98
[2024-12-18 05:00] VITALS: BP 127/72; PULSE 69; RESP 18; TEMP 97.4; O2SAT 98
[2024-12-18 07:47] LABS: Anion Gap 11 (5-15); Potassium 3.7 mmol/L (3.5-5.1); Sodium 140 mmol/L (136-145)
[2024-12-18 07:53] LABS: BUN/Creatinine Ratio 18.6 (10.0-20.0); Blood Urea Nitrogen 19 mg/dL (9-23); Magnesium 1.8 mg/dL (1.6-2.6)
[2024-12-18 07:59] LABS: Carbon Dioxide 15 mmol/L (20-31); Chloride 114 mmol/L (98-107)
[2024-12-18 08:00] VITALS: PULSE 47; PULSE 60; RESP 18; O2SAT 95
[2024-12-18 08:00] LABS: Calcium 8.6 mg/dL (8.7-10.4); Glucose 74 mg/dL (74-106)
[2024-12-18 08:30] VITALS: BP 90/54; PULSE 49; RESP 16; TEMP 97.5; O2SAT 96
[2024-12-18] MEDS ORDERED: VANC125C3 PO (10:54)
--- NOTE | 2024-12-18 10:57 | DVHDS2 ---
Discharge Summary Date of Admission Dec 12, 2024 at 15:50 Date of Discharge: Dec 18, 2024 Labs/Diagnostic Data: Laboratory Results Test 12/18/24 05:27 12/16/24 06:39 12/15/24 05:10 12/13/24 10:07 Sodium Level 140 mmol/L (136-145) Potassium Level 3.7 mmol/L (3.5-5.1) Chloride Level 114 mmol/L (98-107) Carbon Dioxide Level 15 mmol/L (20-31) Anion Gap 11 (5-15) Blood Urea Nitrogen 19 mg/dL (9-23) Creatinine 1.02 mg/dL (0.700-1.30) Glomerular Filtration Rate Calc 79 mL/min (>90) BUN/Creatinine Ratio 18.6 (10.0-20.0) Serum Glucose 74 mg/dL (74-106) Calcium Level 8.6 mg/dL (8.7-10.4) Magnesium Level 1.8 mg/dL (1.6-2.6) Total Bilirubin 0.3 mg/dL (0.2-1.0) Aspartate Amino Transferase (AST) 29 U/L (13-40) Alanine Aminotransferase (ALT) 17 U/L (7-40) Alkaline Phosphatase 120 U/L (46-116) Total Protein 5.2 g/dL (5.7-8.2) Albumin 3.6 g/dL (3.2-4.8) White Blood Count 6.8 10^3/uL (4.4-10.8) Red Blood Count 4.86 10^6/uL (4.5-5.90) Hemoglobin 10.9 g/dL (13.5-17.5) Hematocrit 36.7 % (41.0-53.0) Mean Corpuscular Volume 75.6 fL (80.0-100.0) Mean Corpuscular Hemoglobin 22.4 pg (28.0-32.0) Mean Corpuscular Hemoglobin Concent 29.6 g/dL (32.0-36.0) Red Cell Distribution Width 24.3 % (11.8-14.3) Platelet Count 300 10^3/uL (140-450) Mean Platelet Volume 7.6 fL (6.9-10.8) Neutrophils (%) (Auto) 61.5 % (37.0-80.0) Lymphocytes (%) (Auto) 19.6 % (10.0-50.0) Monocytes (%) (Auto) 15.4 % (0.0-12.0) Eosinophils (%) (Auto) 2.6 % (0.0-7.0) Basophils (%) (Auto) 0.9 % (0.0-2.0) Neutrophils # (Auto) 4.2 10 ^3/uL (1.6-8.6) Lymphocytes # (Auto) 1.3 10 ^3/uL (0.4-5.4) Monocytes # (Auto) 1.0 10 ^3/uL (0-1.3) Eosinophils # (Auto) 0.2 10 ^3/uL (0-0.8) Basophils # (Auto) 0.1 10 ^3/uL (0-0.2) Nucleated Red Blood Cells 0.3 % C-Reactive Protein High Sensitivity 0.33 mg/dL (<1.0) Test 12/12/24 15:38 12/12/24 13:22 12/12/24 10:16 Urine Color Yellow (Yellow) Urine Clarity Turbid (Clear) Urine pH 6.0 (5.0-9.0) Urine Specific [place] 1.022 (1.001-1.035) Urine Protein 1+ (Negative) Urine Ketones Negative (Negative) Urine Blood 3+ /uL (Negative) Urine Nitrite Negative (Negative) Urine Bilirubin Negative (Negative) Urine Urobilinogen Normal mg/dL (Negative) Urine Leukocyte Esterase Negative /uL (Negative) Urine RBC 216 /hpf (0 - 3) Urine Microscopic WBC 1 /HPF (0-3) Urine Squamous Epithelial Cells None seen /hpf (<5) Urine Bacteria None seen /hpf (None Seen) Urine Hyaline Casts Mod /lpf (0 - 2) Urine Mucus Few (None Seen) Urine Yeast (Budding) Occasional /hpf (None Urine Glucose Normal mg/dL (Normal) Lactic Acid Level 1.3 mmol/L (0.4-2.0) Troponin I High Sensitivity 17 ng/L (</=54) B-Type Natriuretic Peptide 31.85 pg/mL (0-100) Other Laboratory Tests 12/18/24 05:27 12/15/24 05:10 Brief Hx & Hospital Course: Final diagnoses: Hypovolemic hypotension due to dehydration Dehydration Diarrhea Metastatic colon cancer to the liver Atrial fibrillation on Eliquis Leukocytosis rule out sepsis History of multiple myeloma in remission Chronic anemia Hypokalemia Acute kidney injury hemodynamically mediated C. Diff colitis He was given IV fluids which improved he CHRISTIAN Stools were + for C. Diff He was given IV Falgyl and PO Vanco Diarrhea improved slowly His weakness improved VS are stable now DC home on Po Vanco x 10 days Resume home meds F/U with PCP MAINOR Condition at Discharge: Stable Final Diagnosis/Problems List Hypovolemic hypotension due to dehydration Dehydration Diarrhea Metastatic colon cancer to the liver Atrial fibrillation on Eliquis Leukocytosis rule out sepsis History of multiple myeloma in remission C diff colitis Chronic anemia Hypokalemia Acute kidney injury hemodynamically mediated Discharge Disposition: Home SNF Discharge Will this Physician continue t: No Discharge Statement: "Patient was advised to return to the ER or call 911 if any headaches, dizziness, shortness of breath, chest pain, abdominal pain, bleeding, fevers, or worsening of medical condition. Patient was counseled about treatment plan, medications, possible side effects, patientverbalized understanding. All questions were answered to the best of my ability. This discharge took greater then 30 minutes in planning, reviewing documentation, counseling the patient, and discussing with other team members." ASSESSMENT ASSESSMENT Assessment Date of Service: Dec 18, 2024 Billing Provider: RICARDO ASCENCIO MD Common Visit Codes: NOT BILLABLE RICARDO ASCENCIO MD Dec 18, 2024 10:57
[2024-12-18 12:33] VITALS: BP 89/68; PULSE 61; RESP 16; TEMP 97.4; O2SAT 98
[2024-12-18] MEDS: POTASSIUM CHL 20 Meq TABLET PO ONE (13:04)
[2024-12-18] MEDS: MAGNESIUM OXIDE 400 MG TAB PO ONE (13:05)
--- NOTE | 2024-12-18 13:06 | DVHINCON2 ---
Date of service: Dec 18, 2024 Referring Physician Rosalba Turner Reason for Consultation History of multiple myeloma in remission and colon cancer metastatic and receiving chemotherapy History of Present Illness 69 years old gentleman who has a history of IgA kappa multiple myeloma with lytic bone lesions diagnosed in April 2019 The patient underwent chemotherapy with VRD Then had stem cell transplant in December 2019 at [facility] Then took Revlimid maintenance from December 2020 and stopped in early 2022. The patient says recently he is diagnosed with a colon cancer and he had surgery done around 6 to 8 weeks back at [facility] and was found to have metastatic disease in the liver. He has a colostomy. And took 1 course of chemotherapy with a different oncologist as an outpatient a month back. Now he is admitted with diarrhea and dehydration and some abdominal discomfort and is found to have C. difficile CT of the abdomen pelvis showed multiple intrahepatic masses suggesting metastatic disease. Multiple lytic lesions throughout the bony skeleton suggesting bony mets. Colostomy in place The patient is feeling better. He has been following with [facility] as an outpatient Past Medical History Multiple myeloma Colon cancer History of A-fib Family History: FH: cancer G8 BROTHER, , Age: 60 years and older G8 BROTHER G8 SISTER, , Age: 50's - 60 FH: emphysema G8 FATHER Allergies: Coded Allergies: NO KNOWN ALLERGIES (Unverified , 12/12/24) Home Meds Active Scripts Vancomycin HCl (Vancomycin HCl) 125 Mg Cap, 125 MG PO QID for 10 Days, #40 CAP Prov:RICARDO ASCENCIO MD 12/18/24 Reported Medications Apixaban Base (ELIQUIS) 5 Mg Tab, 1 12/12/24 Oxycodone Hcl (OXYCODONE HCL) 5 Mg Tb 12/12/24 Celecoxib (Celecoxib) 200 Mg Cap, 1 CAP PO DAILY 12/12/24 Ferrous Sulfate (Ferosul) 325 Mg Tab, 1 TAB PO DAILY 12/12/24 Tamsulosin Hcl (Tamsulosin Hcl) 0.4 Mg Cap 12/12/24 Vital Signs Vital Signs Date Time Temp Pulse Resp B/P (MAP) Pulse Ox O2 Delivery O2 Flow Rate FiO2 12/18/24 12:33 97.4 61 16 89/68 (75) 98 97.4 12/18/24 08:00 Room Air* 0 21 Physical Exam GENERAL: The patient is a moderately built and nourished ,in no distress, alert and oriented. HEAD AND NECK: Unremarkable. No neck nodes or masses. Conjunctivae: Unremarkable for any mucosal hemorrhage or inflammation. Thyroid is nonpalpable. Throat is unremarkable. SPINE: No deformities or tenderness. CHEST: Chest wall, no tenderness. LUNGS: Clear. CARDIOVASCULAR: Regular sinus rhythm. No murmurs or gallops. ABDOMEN: No organomegaly, tenderness or ascites. Bowel sounds present. Has left lower colostomy EXTREMITIES: No clubbing, edema or cyanosis. Peripheral pulses palpable. No calf tenderness. LYMPHATICS: No significant lymphadenopathy. NEUROLOGIC: No focal neurological deficits. SKIN: Unremarkable for any petechiae, purpura, or ecchymosis. Psych: No abnormalities Available data reviewed Labs/Diagnostic Data Labs Test 12/18/24 05:27 12/16/24 06:39 12/15/24 05:10 12/13/24 10:07 Range/Units Sodium Level 140 136-145 mmol/L Potassium Level 3.7 3.5-5.1 mmol/L Chloride Level 114 H 98-107 mmol/L Carbon Dioxide Level 15 L 20-31 mmol/L Anion Gap 11 5-15 Blood Urea Nitrogen 19 9-23 mg/dL Creatinine 1.02 0.700-1.30 mg/dL Glomerular Filtration Rate Calc 79 >90 mL/min BUN/Creatinine Ratio 18.6 10.0-20.0 Serum Glucose 74 74-106 mg/dL Calcium Level 8.6 L 8.7-10.4 mg/dL Magnesium Level 1.8 1.6-2.6 mg/dL Total Bilirubin 0.3 0.2-1.0 mg/dL Aspartate Amino Transferase (AST) 29 13-40 U/L Alanine Aminotransferase (ALT) 17 7-40 U/L Alkaline Phosphatase 120 H 46-116 U/L Total Protein 5.2 L 5.7-8.2 g/dL Albumin 3.6 3.2-4.8 g/dL White Blood Count 6.8 # 4.4-10.8 10^3/uL Red Blood Count 4.86 4.5-5.90 10^6/uL Hemoglobin 10.9 L 13.5-17.5 g/dL Hematocrit 36.7 L 41.0-53.0 % Mean Corpuscular Volume 75.6 L 80.0-100.0 fL Mean Corpuscular Hemoglobin 22.4 L 28.0-32.0 pg Mean Corpuscular Hemoglobin Concent 29.6 L 32.0-36.0 g/dL Red Cell Distribution Width 24.3 H 11.8-14.3 % Platelet Count 300 140-450 10^3/uL Mean Platelet Volume 7.6 6.9-10.8 fL Neutrophils (%) (Auto) 61.5 37.0-80.0 % Lymphocytes (%) (Auto) 19.6 10.0-50.0 % Monocytes (%) (Auto) 15.4 H 0.0-12.0 % Eosinophils (%) (Auto) 2.6 0.0-7.0 % Basophils (%) (Auto) 0.9 0.0-2.0 % Neutrophils # (Auto) 4.2 1.6-8.6 10 ^3/uL Lymphocytes # (Auto) 1.3 0.4-5.4 10 ^3/uL Monocytes # (Auto) 1.0 0-1.3 10 ^3/uL Eosinophils # (Auto) 0.2 0-0.8 10 ^3/uL Basophils # (Auto) 0.1 0-0.2 10 ^3/uL Nucleated Red Blood Cells 0.3 % C-Reactive Protein High Sensitivity 0.33 <1.0 mg/dL Test 12/12/24 15:38 12/12/24 13:22 12/12/24 10:16 Range/Units Urine Color Yellow Yellow Urine Clarity Turbid H Clear Urine pH 6.0 5.0-9.0 Urine Specific [place] 1.022 1.001-1.035 Urine Protein 1+ H Negative Urine Ketones Negative Negative Urine Blood 3+ H Negative /uL Urine Nitrite Negative Negative Urine Bilirubin Negative Negative Urine Urobilinogen Normal Negative mg/dL Urine Leukocyte Esterase Negative Negative /uL Urine RBC 216 0 - 3 /hpf Urine Microscopic WBC 1 0-3 /HPF Urine Squamous Epithelial Cells None seen <5 /hpf Urine Bacteria None seen None Seen /hpf Urine Hyaline Casts Mod 0 - 2 /lpf Urine Mucus Few None Seen Urine Yeast (Budding) Occasional None Seen /hpf Urine Glucose Normal Normal mg/dL Lactic Acid Level 1.3 0.4-2.0 mmol/L Troponin I High Sensitivity 17 </=54 ng/L B-Type Natriuretic Peptide 31.85 0-100 pg/mL Microbiology Date/Time Source Procedure Growth Status 12/13/24 08:44 Stool Clostridium difficile Toxin Assay - Final Complete 12/12/24 16:40 Blood Blood Culture - Final NO GROWTH AFTER 5 DAYS OF INCUBATION. Complete Assessment 1. Recent diagnosis of metastatic colon cancer to the liver and the bones. Status post surgery couple of months back and has colostomy He says received first cycle of chemotherapy couple of weeks back Admitted with C. difficile 2. History of multiple myeloma status post chemotherapy with VRD and stem cell transplant and Revlimid maintenance and has been in remission 3. History of hypertension/hyperlipidemia and A-fib 4. History of B12 deficiency Plan/Recommendation The patient will talk to his insurance and then come for a follow-up as an outpatient Plan discussed with: Patient MARYANN LOZANO MD Dec 18, 2024 13:06
[2024-12-18 13:57] VITALS: BP 108/75; PULSE 81; RESP 16; TEMP 36.3; O2SAT 95
--- NOTE | 2024-12-18 15:53 | DVHPN2 ---
Progress Note Date Seen: Dec 18, 2024 Resident Creating Document: KAT SANTA RESIDENT Medical Necessity Reason Pt with a Central, PICC or Fol: No Subjective Review of Systems Patient is seen and examined at bedside. Stool consistency is improving to semi solid now. no other complains. Objective vital signs Vital Sign Date Time Temp Pulse Resp B/P (MAP) Pulse Ox O2 Delivery O2 Flow Rate FiO2 12/18/24 13:57 36.3 81 16 95 12/18/24 12:33 89/68 (75) 12/18/24 08:00 Room Air* 0 21 Total Intake and Output 12/17/24 12/17/24 12/18/24 15:00 23:00 07:00 Intake Total 340 ml 1520 ml 600 ml Output Total 450 ml Balance 340 ml 1520 ml 150 ml Examination General Appearance: Cooperative. Well developed. Well nourished. NAD Head Exam: Normal inspection Neck Exam: Normal inspection. Non-tender. Normal alignment Pulmonary/Respiratory: Chest non-tender. Clear bilateral breath sounds Cardiovascular/Chest: Regular rate and rhythm. No murmurs. No JVD. Peripheral Pulses: 2+ Radial (R). 2+ Radial (L). 2+ Pedal (R). 2+ Pedal (L) Abdominal Exam: Normal bowel sounds. Soft. Nontender. No hepatospenomegaly. No masses, presence of colostomy bag. Ankle Exam: Negative ankle edema Lower extremities: Negative lower extremity edema Neuro/Mental Status: A&O x4. Coherent Thoughts/Psych: Normal thought pattern. Appropriate mood and affect. Good judgement and insight Appearance: In no acute distress Skin Exam: Normal inspection. Normal color. Warm. Dry laboratory and microbiology Laboratory Tests 12/18/24 05:27 12/15/24 05:10 Test 12/18/24 05:27 Range/Units Serum Glucose 74 74-106 mg/dL Microbiology Date/Time Source Procedure Growth Status 12/13/24 08:44 Stool Clostridium difficile Toxin Assay - Final Complete 12/12/24 16:40 Blood Blood Culture - Final NO GROWTH AFTER 5 DAYS OF INCUBATION. Complete Problem List/Assessment/Plan Problem List/Assessment/Plan Acute C diff colitis Metastatic colon cancer to liver and spine Presence of colostomy bag Dehydration Anemia on chronic disease CHRISTIAN likely hemodynamically mediated. bradycardia Plan/recommendation Dr Melton - Continue oral vancomycin for total 10 days. Follow up with PCP and GI in outpatient setting. -diarrhea could be superimposed related to chemotherapy and C diff. -continue with IV fluid for hydration -titrate down IV antibiotics if deemed necessary as per hospitalist team. -replenish electrolytes -CT scan of abdomen and pelvis: Metastatic lesion to liver and bony structures. -Bradycardia: Cardio is consulted -we will continue to monitor patient Plan discussed with: Patient, Other (RN) KAT SANTA RESIDENT Dec 18, 2024 15:53
== END 2024-12-18 15:29 | disposition home or self-care (01) | DRG 871 ==
LOC: ER 09:52 → TELE 15:50 → ER 15:52 → OVERFLOW 16:31 → WEST WING 23:00 → OVERFLOW 12-13 13:23 → TELE-WESTW 12-13 13:41 → TELE-EAST 12-14 17:40
PROVIDERS: ADMIT Internal Medicine Geriatric Medicine; ATTEND Internal Medicine Geriatric Medicine
DX: A41.89 Other specified sepsis (principal); N17.0 Acute kidney failure with tubular necrosis; C18.9 Malignant neoplasm of colon, unspecified; C78.7 Secondary malignant neoplasm of liver and intrahepatic bile duct; A04.72 Enterocolitis due to Clostridium difficile, not specified as recurrent; C90.01 Multiple myeloma in remission; Z94.84 Stem cells transplant status; I48.91 Unspecified atrial fibrillation; E86.0 Dehydration; E86.1 Hypovolemia; R06.03 Acute respiratory distress; E53.8 Deficiency of other specified B group vitamins; I10 Essential (primary) hypertension; E78.5 Hyperlipidemia, unspecified; R00.1 Bradycardia, unspecified; E87.6 Hypokalemia; D63.8 Anemia in other chronic diseases classified elsewhere; Z79.01 Long term (current) use of anticoagulants; Z93.3 Colostomy status; Z85.038 Personal history of other malignant neoplasm of large intestine; Z82.5 Family history of asthma and other chronic lower respiratory diseases; Z92.21 Personal history of antineoplastic chemotherapy; Z86.73 Personal history of transient ischemic attack (TIA), and cerebral infarction without residual deficits; Z90.49 Acquired absence of other specified parts of digestive tract
CPT/HCPCS: 36415; 71045; 74176; 80048; 80053; 81001; 83605; 83735; 83880; 84484; 85025; 86141; 87040; 87045; 87427; 87493; 93005; 96361; 96374; 97110; 97116; 97163; 99291; G0378; J2405; J3490